=== PATIENT | male | born 1945 | race Caucasian/White ===

== ENCOUNTER → 2020-09-03 11:51 | Outpatient (CLI) | payer MEDICARE, SELFPAY ==
--- NOTE | 2020-09-03 11:56 | RAD_ITS ---
STUDY: X-RAY CHEST REASON FOR EXAM: Male, 75 years old. Hypertension TECHNIQUE: PA and lateral views of the chest. COMPARISON: None. FINDINGS: There is hyperinflation of the lungs consistent with chronic obstructive lung disease (COPD). There is no demonstrated pleural abnormality. Normal size heart. Normal mediastinum and quinten. Normal visualized pulmonary arteries. Normal visualized aortic arch and descending thoracic aorta. There are mild degenerative changes of the visualized thoracic spine. Normal visualized ribs, clavicles, and shoulders. There is no demonstrated abnormality of the visualized soft tissue structures of the upper abdomen. RAD/Chest PA and Lateral IMPRESSION: Hyperinflation. The lungs are clear. Electronically Signed: Arthur Piña, at 12:54 EST , Service support ,
[2020-09-03 12:53] LABS: Bacteria 0 SEEN /hpf (None Seen); Mucous, Urine 0 SEEN /hpf (<or=2+); Red Blood Cells-Urine 0 SEEN /hpf (0-5); Squamous Epithelial Cells - UA 0 SEEN /hpf (0-5); White Blood Cells 0 SEEN /hpf (0-5)
[2020-09-03 15:30] LABS: Absolute Lymphocyte Count 1.92 X10^3/uL (0.83-4.51); Absolute Neutrophil Count 4.7 X10^3/uL (2.0-7.7); Basophil# 0.06 X10^3/uL; Basophil% 0.8 % (0-1); Eosinophil# 0.26 X10^3/uL; Eosinophils% 3.4 % (0-5); Hematocrit 49.3 % (40-54); Hemoglobin 16.2 g/dL (13.0-16.5); Lymphocyte # 1.92 X10^3/ul (4.0); Mean Corp Hgb Conc 32.9 g/dL (32-36); Mean Corpuscular Hgb 29.7 pg (27.0-32.0); Mean Corpuscular Volume 90.3 fL (80-94); Mean Platelet Vol. 12.1 fl (6.2-12.0); Monocyte# 0.77 X10^3/uL; NRBC Flagged by Analyzer 0 % (0-5); Neutrophil # 4.65 X10^3/uL (2.7-7.7); Neutrophil % 60.4 % (47-70); Platelet Count 252 K/mm3 (150-450); RBC Distribution Width CV 14.3 % (11.6-14.6); RBC Distribution Width SD 47.5 fl (35.1-43.9); Red Blood Count 5.46 M/mm3 (4.6-6.2); White Blood Count 7.7 K/mm3 (4.4-11.0)
[2020-09-03 15:32] LABS: Glucose, Dipstick Normal (Normal); Ketone-Dipstick Negative (Negative); Leukocyte Esterase-Dipstick Negative /ul (Negative); Nitrite-Dipstick Negative (Negative); Occult Blood-Urine Negative /ul (Negative); Protein-Dipstick 100 mg/dl (Negative); Urine Bilirubin Dipstick Negative (Negative); Urine Urobilinogen Normal (Normal)
[2020-09-03 15:41] LABS: Color, Urine Yellow (Yellow); Urine Clarity Clear (Clear)
[2020-09-03 16:04] LABS: ALB/GLOB Ratio 0.9 RATIO (0.9-2.4); AST(SGOT) 29 U/L (15-37); Alanine Aminotransfer ALT/SGPT 49 U/L (16-61); Albumin, Serum 3.8 g/dL (3.2-5.0); Alkaline Phosphatase 81 U/L (45-117); Anion Gap 8 (5-15); BUN 18 mg/dL (7-18); BUN/Creat Ratio 19.4 RATIO (10-20); Chloride 103 mmol/L (98-107); Cholesterol 138 mg/dL (200); Creatinine, Serum 0.93 mg/dL (0.70-1.30); EST Glomerular Filtration Rate 85 mL/min (>60); Est Glom Filt Rate - Afr Amer 103 mL/min (>60); Globulin 4.2 g/dL (2.2-4.2); Glucose 89 mg/dL (74-106); High Density Lipoprotein 37 mg/dL; Magnesium 2.3 mg/dL (1.6-2.6); Potassium 4.2 mmol/L (3.5-5.1); Sodium Level 137 mmol/L (136-145); Triglycerides 211 mg/dL; Very Low Density Lipoprotein 42 mg/dL (5-40)
== END ==
PROVIDERS: PCP Family Medicine; Referring Provider Family Medicine; Visit Provider Family Medicine
DX: I10 Essential (primary) hypertension (principal); E78.00 Pure hypercholesterolemia, unspecified
CPT/HCPCS: 36415; 71046; 80053; 80061; 81001; 83735; 84443; 85025

== ENCOUNTER → 2020-09-09 12:47 | Outpatient (CLI) | payer MEDICARE, SELFPAY ==
--- NOTE | 2020-09-09 12:53 | US_ITS ---
STUDY: THYROID ULTRASOUND REASON FOR EXAM: Male, 75 years old. NODULE TECHNIQUE: Ultrasound evaluation of the thyroid was performed with real-time and static mina-scale imaging. COMPARISON: None. FINDINGS: RIGHT LOBE: The right lobe of the thyroid gland measures 4.3 x 1.4 x 1.8 cm. There is a homogeneous echotexture. Within the mid pole is a 2 mm cystic lesion with central hyperechoic area likely consistent with colloid cyst given appearance. LEFT LOBE: The left lobe of the thyroid gland measures 3.7 x 1.3 x 1.6 cm. There is a homogeneous echotexture. There are no demonstrated solid, cystic or complex lesions. ISTHMUS: The isthmus measures 2 mm. . The regional lymph nodes are normal. 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 Electronically Signed: Obed Berger DO at 10:16 EST , Service support ,
== END ==
PROVIDERS: PCP Family Medicine; Referring Provider Family Medicine; Visit Provider Family Medicine
DX: E04.1 Nontoxic single thyroid nodule (principal)
CPT/HCPCS: 76536

== ENCOUNTER → 2020-10-27 15:09 | Outpatient (CLI) | payer MEDICARE, SELFPAY ==
[2020-10-27 16:40] LABS: Absolute Lymphocyte Count 2.22 X10^3/uL (0.83-4.51); Absolute Neutrophil Count 4.2 X10^3/uL (2.0-7.7); Basophil# 0.05 X10^3/uL; Basophil% 0.7 % (0-1); Eosinophil# 0.26 X10^3/uL; Eosinophils% 3.5 % (0-5); Hematocrit 49.2 % (40-54); Hemoglobin 16.2 g/dL (13.0-16.5); Lymphocyte # 2.22 X10^3/ul (4.0); Lymphocyte % 29.5 % (19-41); Mean Corp Hgb Conc 32.9 g/dL (32-36); Mean Corpuscular Hgb 30.4 pg (27.0-32.0); Mean Corpuscular Volume 92.3 fL (80-94); Mean Platelet Vol. 12.4 fl (6.2-12.0); Monocyte% 10.6 % (0-10); NRBC Flagged by Analyzer 0 % (0-5); Neutrophil # 4.18 X10^3/uL (2.7-7.7); Neutrophil % 55.4 % (47-70); Platelet Count 260 K/mm3 (150-450); RBC Distribution Width CV 13.6 % (11.6-14.6); RBC Distribution Width SD 45.6 fl (35.1-43.9); Red Blood Count 5.33 M/mm3 (4.6-6.2); White Blood Count 7.5 K/mm3 (4.4-11.0)
[2020-10-27 17:03] LABS: ALB/GLOB Ratio 0.9 RATIO (0.9-2.4); AST(SGOT) 34 U/L (15-37); Alanine Aminotransfer ALT/SGPT 50 U/L (16-61); Albumin, Serum 3.7 g/dL (3.2-5.0); Alkaline Phosphatase 84 U/L (45-117); Anion Gap 6 (5-15); BUN 21 mg/dL (7-18); BUN/Creat Ratio 21.5 RATIO (10-20); Calcium,Total 9.2 mg/dL (8.5-10.1); Chloride 103 mmol/L (98-107); Cholesterol 157 mg/dL (200); Creatinine, Serum 0.98 mg/dL (0.70-1.30); EST Glomerular Filtration Rate 80 mL/min (>60); Est Glom Filt Rate - Afr Amer 97 mL/min (>60); Globulin 4.3 g/dL (2.2-4.2); Glucose 99 mg/dL (74-106); High Density Lipoprotein 36 mg/dL; Potassium 4.4 mmol/L (3.5-5.1); Sodium Level 134 mmol/L (136-145); Thyroid Stim Hormone (TSH) 1.84 uIU/mL (0.358-3.74); Triglycerides 289 mg/dL; Very Low Density Lipoprotein 58 mg/dL (5-40)
[2020-10-28 09:22] LABS: Hepatitis C Antibody Non-Reactive (Nonreactive); Vitamin D,25 Hydroxy 35.6 ng/mL
== END ==
PROVIDERS: PCP Family Medicine; Visit Provider Family Medicine Geriatric Medicine
DX: E55.9 Vitamin D deficiency, unspecified (principal); E78.5 Hyperlipidemia, unspecified; R53.83 Other fatigue; Z13.89 Encounter for screening for other disorder
CPT/HCPCS: 36415; 80053; 80061; 82306; 84443; 85025; 86803

== ENCOUNTER → 2020-11-04 14:44 | Outpatient (CLI) | payer MEDICARE, SELFPAY ==
--- NOTE | 2020-11-04 14:51 | CT_ITS ---
STUDY: LOW DOSE CT LUNG CANCER SCREENING REASON FOR EXAM: Male, 75 years old. LUNG CANCER SCREENING. SMOKE PIPE FOR 20 YEARS RADIATION DOSAGE (If Supplied By Facility): CTDIvol = ( 3.02 ) mGy, DLP = ( 107.59 ) mGycm TECHNIQUE: No contrast was administered. Low dose technique was utilized (average mAS-38 and kVp 120). 1.25 mm axial source images with a slice interval of 1.25-mm were reconstructed in lung windows. 2.5 mm axial source images with a slice interval of 2.5-mm were reconstructed in lung windows. 5.0 mm axial source images with a slice interval of 5.0-mm were reconstructed in soft tissue windows. Nodule measured using lung windows on PACS and/or independent workstation with automated measurement of minimum and maximum diameter. Nodule measurement reported as average diameter rounded to the nearest whole number. Growth is defined as an increase ins size of greater than 1.5 mm. COMPARISON: Comparison is made with prior chest radiograph dated 09/03/2020. NODULES: No suspicious nodules are seen. Emphysema: Hyperinflation. Findings suggestive of a biapical pulmonary scarring. Minimal linear scarring in the anterior medial aspect of the left upper lobe. Findings suggestive of minimal scarring in the medial portions of both lower lobes with mild bronchiectasis. Calcified granuloma in the superior segment of the left lower lung. Endobronchial lesion: Aorta: Mild atherosclerotic changes of the aortic arch. Coronary arteries: Calcification of the mitral valve annulus. Coronary artery calcification. Mediastinal nodes: Small benign appearing mediastinal lymph nodes. Calcified left hilar lymph nodes. Other chest and abdominal findings: Hiatal hernia. CT/Low Dose CT Lung Screening IMPRESSION: Lung-RADS category 2 - Continue annual screening with LDCT in 12 months. IMPORTANT NOTES FOR USE: ACR Lung-RADS Version 1.0 Assessment Categories Release Date: January 13, 2014 Category: Coded 0-4 bases on nodule(s) with highest degree of suspicion. Negative screen is defined as categories 1 and 2; a positive screen is defined as categories 3 and 4. Category 3 and 4A nodules that are unchanged on interval CT should be coded as category 2, and individuals returned to screening in 12 months. Category 4X: Category 3 or 4 nodules with additional imaging findings that increase the suspicion of lung cancer, such as spiculation, GGN that doubles in size in 1 year, enlarged lymph notes, etc. Category Modifiers: S (significant finding unrelated to lung cancer) and C (prior history of treated lung cancer) may be added to the 0-4 Lung-RADS Electronically Signed: Arthur Piña MD at 15:23 EST , Service support ,
== END ==
PROVIDERS: PCP Family Medicine Geriatric Medicine; Referring Provider Family Medicine Geriatric Medicine; Visit Provider Family Medicine Geriatric Medicine
DX: F17.210 Nicotine dependence, cigarettes, uncomplicated (principal); Z12.2 Encounter for screening for malignant neoplasm of respiratory organs
CPT/HCPCS: 71271

== ENCOUNTER → 2020-11-06 08:07 | Outpatient (CLI) | payer MEDICARE, SELFPAY ==
--- NOTE | 2020-11-06 08:08 | AAVD_ITS ---
Reason For Study: AAA Aorta Measurements Aorta Doppler Measurements Proximal aorta measures1.84cm x 1.99cm. in cross- Peak systolic flow velocities within the proximal sectional axis. aorta measure 79 cm/sec. Proximal aorta measures1.90cm. in longitudinal Peak systolic flow velocities within the mid aorta axis. measure 67 cm/sec. Mid aorta measures2.34cm x 2.38cm. in cross- Peak systolic flow velocities within the distal sectional axis. aorta measure 86 cm/sec. Mid aorta measures1.90cm. in longitudinal axis. Distal aorta measures1.66cm x 1.78cm. in cross- sectional axis. Distal aorta measures1.61cm. in longitudinal axis. Left Iliac Artery Left iliac artery measures 0.95cm x 0.93 cm. in the cross-sectional axis. Left iliac artery measures 1.09 cm. in the longitudinal axis. Peak systolic velocity in the left iliac artery measures 103 cm/sec. Right Iliac Artery Right iliac artery measures 0.98cm x 0.99 cm. in the cross-sectional axis. Right iliac artery measures 1.11 cm. in the longitudinal axis. Peak systolic velocity in the right iliac artery measures 75 cm/sec. Procedure Aorta IVC Iliac vasculature or bypass grafts [id number]. Bowel gas noted mid Aorta. Exam performed in department. Interpretation Summary The dimensions of the intra-abdominal aorta are normal, without evidence of aneurysmal dilatation. The iliac arteries are also normal in size bilaterally. The intra-abdominal aorta and iliac arteries are patent, demonstrating normal, pulsatile arterial flow and normal peak systolic velocities. Ordering Physician: Rigo Cramer Referring Physician: Rigo Cramer Chi Performed By: Veronica Josue, RDCS, RVT
== END ==
PROVIDERS: PCP Family Medicine Geriatric Medicine; Referring Provider Family Medicine Geriatric Medicine; Visit Provider Family Medicine Geriatric Medicine
DX: I71.4 Abdominal aortic aneurysm, without rupture (principal)
CPT/HCPCS: 93978

== ENCOUNTER → 2020-11-26 15:32 | Outpatient (CLI) | payer MEDICARE, SELFPAY ==
[2020-11-26 17:35] LABS: Cholesterol 222 mg/dL (200); High Density Lipoprotein 26 mg/dL; Triglycerides 563 mg/dL
== END ==
PROVIDERS: PCP Family Medicine Geriatric Medicine; Visit Provider Family Medicine Geriatric Medicine
DX: E78.5 Hyperlipidemia, unspecified (principal)
CPT/HCPCS: 36415; 80061

== ENCOUNTER → 2021-04-26 13:45 | Outpatient (CLI) | payer MEDICARE, SELFPAY ==
[2021-04-26 15:43] LABS: Absolute Lymphocyte Count 1.86 X10^3/uL (0.83-4.51); Absolute Neutrophil Count 5.7 X10^3/uL (2.0-7.7); Basophil# 0.07 X10^3/uL; Basophil% 0.8 % (0-1); Eosinophil# 0.19 X10^3/uL; Eosinophils% 2.2 % (0-5); Hemoglobin 15.3 g/dL (13.0-16.5); Lymphocyte # 1.86 X10^3/ul (0.83-4.51); Lymphocyte % 21.4 % (19-41); Mean Corp Hgb Conc 32.6 g/dL (32-36); Mean Corpuscular Hgb 29.2 pg (27.0-32.0); Mean Corpuscular Volume 89.7 fL (80-94); Mean Platelet Vol. 11.8 fl (6.2-12.0); Monocyte# 0.83 X10^3/uL; Monocyte% 9.5 % (0-10); NRBC Flagged by Analyzer 0 % (0-5); Neutrophil # 5.72 X10^3/uL (2.7-7.7); Neutrophil % 65.6 % (47-70); Platelet Count 244 K/mm3 (150-450); RBC Distribution Width CV 13.7 % (11.6-14.6); RBC Distribution Width SD 45.1 fl (35.1-43.9); Red Blood Count 5.24 M/mm3 (4.6-6.2); White Blood Count 8.7 K/mm3 (4.4-11.0)
[2021-04-26 15:56] LABS: Vitamin D,25 Hydroxy 57.9 ng/mL
[2021-04-26 16:20] LABS: ALB/GLOB Ratio 0.9 RATIO (0.9-2.4); AST(SGOT) 26 U/L (15-37); Alanine Aminotransfer ALT/SGPT 37 U/L (16-61); Albumin, Serum 3.4 g/dL (3.2-5.0); Alkaline Phosphatase 66 U/L (45-117); Anion Gap 8 (5-15); BUN 21 mg/dL (7-18); BUN/Creat Ratio 22.5 RATIO (10-20); Calcium,Total 8.5 mg/dL (8.5-10.1); Chloride 105 mmol/L (98-107); Cholesterol 227 mg/dL (200); Creatinine, Serum 0.94 mg/dL (0.70-1.30); EST Glomerular Filtration Rate 84 mL/min (>60); Est Glom Filt Rate - Afr Amer 102 mL/min (>60); Globulin 3.9 g/dL (2.2-4.2); Glucose 124 mg/dL (74-106); High Density Lipoprotein 31 mg/dL; Protein, Total 7.3 g/dL (6.4-8.2); Sodium Level 137 mmol/L (136-145); Thyroid Stim Hormone (TSH) 1.46 uIU/mL (0.358-3.74); Triglycerides 369 mg/dL; Very Low Density Lipoprotein 74 mg/dL (5-40)
== END ==
PROVIDERS: PCP Family Medicine Geriatric Medicine; Visit Provider Family Medicine Geriatric Medicine
DX: E55.9 Vitamin D deficiency, unspecified (principal); I10 Essential (primary) hypertension; E78.5 Hyperlipidemia, unspecified
CPT/HCPCS: 36415; 80053; 80061; 82306; 84443; 85025

== ENCOUNTER 2021-05-22 10:26 | Inpatient (IN) | payer MEDICARE, SELFPAY ==
[2021-05-22 10:26] VITALS: BP 140/79; PULSE 67; RESP 16; TEMP 36.2; O2SAT 95; BMI 22.9
--- NOTE | 2021-05-22 10:44 | CT_ITS ---
EXAM: CT HEAD WITHOUT INTRAVENOUS CONTRAST : 1945 CLINICAL INDICATION: injury TECHNIQUE: Multiple axial images were obtained of the head without intravenous contrast. This CT exam was performed using one or more of the following dose reduction techniques: automated exposure control, adjustment of the mA and/or kV according to patient size, and/or use of iterative reconstruction technique. This report was created using [employer] report generation technology. COMPARISON: None. FINDINGS: BRAIN AND EXTRA-AXIAL SPACES: Unremarkable. No intra- or extra-axial hemorrhage. No evidence of acute infarct. No intracranial mass or mass effect. There is preservation of the mina/white matter interface. Posterior fossa structures are unremarkable. Ventricles are appropriate for age. No hydrocephalus. Basal cisterns are patent. BONES/JOINTS: Unremarkable. No discrete lytic or blastic abnormalities. SINUSES: Unremarkable as visualized. Clear. MASTOID AIR CELLS: Unremarkable. Clear. ORBITS: Visualized globes, extraocular muscles, optic nerves and retrobulbar fat appear unremarkable. CT/Brain/Head without Contrast IMPRESSION: Negative head/brain CT without intravenous contrast. Individualized dose optimization techniques were used for this CT. at 1136 Reported and signed by: Shubham Mendoza MD Electronically Signed: Shubham Mendoza MD at 11:35 EDT Tel , Service support ,
--- NOTE | 2021-05-22 10:55 | RAD_ITS ---
EXAM: XR RIGHT HIP WITH PELVIS WHEN PERFORMED, 2 OR 3 VIEWS : 1945 CLINICAL INDICATION: fell today TECHNIQUE: Two or three views of the right hip with pelvis when performed. This report was created using [employer] report generation technology. COMPARISON: None. FINDINGS: BONES/JOINTS: There is a fracture of the right femoral neck. There is a total left hip prosthesis in anatomic alignment. No destructive or sclerotic lesions. Note that overlapping bowel shadows may however obscure fine detail. Sacroiliac joint is unremarkable. No widening of the pubic symphisis. SOFT TISSUES: Unremarkable. No soft tissue swelling or gas. RAD/HIP, UNI W/ Pelvis 2-3 Views IMPRESSION: Fracture of the right femoral neck. at 1139 Reported and signed by: Shubham Mendoza MD Electronically Signed: Shubham Mendoza MD at 11:38 EDT Tel , Service support ,
[2021-05-22] MEDS: Ondansetron 4 MG/2 ML Vial IV (12:09)
[2021-05-22] MEDS: Morphine 4 MG/ML Syringe IV (12:09)
[2021-05-22 12:14] LABS: Absolute Lymphocyte Count 0.94 X10^3/uL (0.83-4.51); Basophil# 0.03 X10^3/uL; Basophil% 0.3 % (0-1); Eosinophil# 0.26 X10^3/uL; Eosinophils% 2.8 % (0-5); Hematocrit 46.8 % (40-54); Hemoglobin 15.5 g/dL (13.0-16.5); Lymphocyte # 0.94 X10^3/ul (0.83-4.51); Mean Corp Hgb Conc 33.1 g/dL (32-36); Mean Corpuscular Hgb 29.8 pg (27.0-32.0); Mean Corpuscular Volume 89.8 fL (80-94); Mean Platelet Vol. 11.8 fl (6.2-12.0); Monocyte# 1.12 X10^3/uL; NRBC Flagged by Analyzer 0 % (0-5); Neutrophil # 6.97 X10^3/uL (2.7-7.7); Neutrophil % 74.5 % (47-70); Platelet Count 221 K/mm3 (150-450); RBC Distribution Width CV 13.8 % (11.6-14.6); RBC Distribution Width SD 45.7 fl (35.1-43.9); Red Blood Count 5.21 M/mm3 (4.6-6.2); White Blood Count 9.4 K/mm3 (4.4-11.0)
[2021-05-22 12:26] LABS: Partial Thromboplast Time 32.2 Seconds (24.1-36.2)
--- NOTE | 2021-05-22 12:28 | EDS_ITS ---
HPI History of Present Illness Chief Complaint: Fall Informant: patient and spouse/S.O. Narrative Narrative: 76-year-old male presents the emergency department with right hip pain from a fall. Patient states that he was working in his bed of his truck and went to step onto the 3 step ladder and the ladder gave way and he fell down onto his right side. He notes a area of soreness to the right shoulder and an area of contusion to the right side of his head. He denies any neck or back pain. He notes most of his discomfort is in his right hip. He denies any knee or ankle injury. He had a prior fall off of a semi. This resulted in a left hip fracture which was treated in [place]. He recently relocated to [place]. He does not have a local orthopedist [facility] Medical History (Updated 05/22/21 @ 12:[address] Paul Castro DO) High cholesterol Home Medications atorvastatin 40 mg PO DAILY 05/22/21 [History Last Taken Unknown] latanoprost drp 05/22/21 [History Last Taken Unknown] Allergy/AdvReac Type Severity Reaction Status Date / Time No Known Allergies Allergy Verified 05/22/21 10:26 Surgical History (Updated 05/22/21 @ 12:[address] Paul Castro DO) History of total left hip replacement Social History (Updated 05/22/21 @ 12:[address] Paul Castro DO) Smoking Status: Former smoker substance use type: does not use ROS ROS ED Constitutional Constitutional ED: Denies chills or weight loss Eyes Eyes: Denies change in vision or diplopia ENT ENT ED: Denies ear pain, rhinorrhea or sore throat Cardiovascular Cardiovascular: Denies chest pain, orthopnea, palpitations or racing heartbeat Respiratory/Chest Respiratory/Chest: Denies cough, dyspnea or orthopnea Gastrointestinal Gastrointestinal: Denies abdominal pain, diarrhea, nausea or vomiting Genitourinary Genitourinary ED: Denies dysuria, hematuria or urinary frequency Musculoskeletal Musculoskeletal: Reports other Details: Right hip pain ; Denies arthralgias or myalgias Integumentary Reports Abrasions; Denies abscess or rash Neurologic Neurologic: Denies headache(s) or weakness Psychiatric Psychiatric: Denies anxiety, depression, suicidal ideation or suicidal thoughts Endocrine Endocrinology: Denies polydipsia, polyphagia or polyuria Allergic/Immunologic Allergic/Immunologic ED: Denies mouth swelling, tongue swelling or urticaria EXAM Physical Exam Const Vital Signs: 05/22/21 10:26 05/22/21 10:37 Temperature 97.2 F L Temperature Source Temporal Pulse Rate 67 Respiratory Rate 16 Respiratory Effort Normal Non-Labored Blood Pressure 140/79 H Blood Pressure Mean 99 Pulse Ox 95 Oxygen Delivery Method Room Air Room Air Positive well nourished and well developed General Appearance ED: well developed HEENT Reports normocephalic, head/scalp atraumatic, TM's clear and moist mucous membranes HEENT Narrative: Abrasion right scalp trauma Tympanic Membrane ED: Yes TM's clear Eyes PERRL and EOMs intact bilaterally Neck no lymphadenopathy, supple and no JVD Resp normal respiratory effort and clear to auscultation bilaterally Cardio regular rate, regular rhythm and no murmurs GI normal to inspection, nondistended, normoactive bowel sounds and non-tender Palpation: soft Back/Spine no CVA tenderness and normal ROM Extremity Extremity Narrative: Right leg appears slightly shorter than left. Positive logroll. There is a superficial abrasion to the right shoulder. Superficial abrasions to the wrist. Full range of motion and painless. General Extremety ED: Negative for edema General Extremity: Negative for edema Neuro oriented x3 and CN's II-XII intact bilaterally Sensorium / Orientation: alert Motor Exam: strength 5/5 throughout Psych mental status grossly normal Mood & Affect: Negative for depressed or tearful Skin no rashes or lesions noted and no wounds MDM MDM MDM Narrative Medical decision making narrative: CT of the brain shows no acute intracranial hemorrhage or fracture. My interpretation of the right hip is a femoral neck fracture. I spoke with Dr. Ng from orthopedics. He will plan on having surgery tomorrow. I will speak with the hospitalist regarding admission. Lab Data Attestation: I reviewed the patient's lab results. Labs: Laboratory Results - last 24 hr 05/22/21 05/22/21 05/22/21 12:04 12:04 12:04 WBC 9.4 RBC 5.21 Hgb 15.5 Hct 46.8 MCV 89.8 MCH 29.8 MCHC 33.1 RDW Std Deviation 45.7 H RDW Coeff of Elida 13.8 Plt Count 221 MPV 11.8 Immature Gran % (Auto) 0.400 Neut % (Auto) 74.5 H Lymph % (Auto) 10.0 L [place] % (Auto) 12.0 H Eos % (Auto) 2.8 Baso % (Auto) 0.3 Absolute Neuts (auto) 7.0 Absolute Lymphs (auto) 0.94 Nucleated RBC % 0 PT 13.0 INR 1.0 APTT 32.2 Sodium 136 Potassium 4.1 Chloride 105 Carbon Dioxide 26.0 Anion Gap 5 BUN 23 H Creatinine 0.88 Estim Creat Clear Calc 75.60 Est GFR (MDRD) Af Amer 109 Est GFR (MDRD) Non-Af 90 BUN/Creatinine Ratio 26.1 H Glucose 125 H Calcium 8.9 Total Bilirubin 0.80 AST 26 ALT 29 Alkaline Phosphatase 68 Total Protein 7.5 Albumin 3.2 Globulin 4.3 H Albumin/Globulin Ratio 0.7 L Radiography Diagnostic Testing: Radiology Impression Brain CT 05/22/21 10:44 IMPRESSION: Negative head/brain CT without intravenous contrast. Individualized dose optimization techniques were used for this CT. at 1136 Reported and signed by: Shubham Mendoza MD Electronically Signed: Shubham Mendoza MD at 11:35 EDT Tel , Service support , Hip/Pelvis X-Ray 05/22/21 10:55 IMPRESSION: Fracture of the right femoral neck. at 1139 Reported and signed by: Shubham Mendoza MD Electronically Signed: Shubham Mendoza MD at 11:38 EDT Tel , Service support , EKG Initial EKG: Attestation: I personally reviewed and interpreted this EKG as follows: Comments: Sinus bradycardia with a ventricular rate of 56 bpm Discharge Plan Dx/Rx/DC Orders Clinical Impression: Fall, Fracture of femoral neck, right, closed, Contusion of right shoulder, Abrasion of scalp, Contusion of right wrist Disposition Disposition: Acute Care Hospital [facility]
[2021-05-22 12:34] LABS: ALB/GLOB Ratio 0.7 RATIO (0.9-2.4); AST(SGOT) 26 U/L (15-37); Alanine Aminotransfer ALT/SGPT 29 U/L (16-61); Albumin, Serum 3.2 g/dL (3.2-5.0); Alkaline Phosphatase 68 U/L (45-117); Anion Gap 5 (5-15); BUN 23 mg/dL (7-18); BUN/Creat Ratio 26.1 RATIO (10-20); Calcium,Total 8.9 mg/dL (8.5-10.1); Chloride 105 mmol/L (98-107); Creatinine, Serum 0.88 mg/dL (0.70-1.30); EST Glomerular Filtration Rate 90 mL/min (>60); Est Glom Filt Rate - Afr Amer 109 mL/min (>60); Globulin 4.3 g/dL (2.2-4.2); Glucose 125 mg/dL (74-106); Potassium 4.1 mmol/L (3.5-5.1); Protein, Total 7.5 g/dL (6.4-8.2); Sodium Level 136 mmol/L (136-145)
--- NOTE | 2021-05-22 12:40 | EKG12_ITS ---
Test Reason : FALL Blood Pressure : / mmHG Vent. Rate : 056 BPM Atrial Rate : 056 BPM P-R Int : 160 ms QRS Dur : 080 ms QT Int : 398 ms P-R-T Axes : 051 060 057 degrees QTc Int : 384 ms Sinus bradycardia Otherwise normal ECG Confirmed by MARIANGEL MURCIA, MALLORIE ([id number]), features editor JENNY CAMACHO ([id number]) on 05/25/2021 8:01:01 AM Referred By: JAMES Confirmed By:SHAI AUGUST MD
[2021-05-22 13:45] VITALS: BP 140/79; PULSE 67; RESP 16; TEMP 36.2; O2SAT 95
[2021-05-22 14:10] VITALS: BP 143/91; PULSE 57; RESP 16; TEMP 36.6; O2SAT 96; BMI 23.4
--- NOTE | 2021-05-22 15:07 | PCM.HP.STD ---
HPI - General General Date of Admission: 05/22/21 HPI Narrative JODI CLARK, is a 76 M who presents the hospital with right hip pain. He apparently fell off the bed of his pickup truck, he was trying to get down with step ladder and the ladder gave way and he fell onto his right hip. In the ED he was found to have a right hip fracture. 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 Denies any fevers or chills currently says that it was purely mechanical fall, no lightheadedness or dizziness. No chest pain either. Denies any palpitations recently. [facility] Medical History (Updated 05/22/21 @ 14:27 by Delisa Church) Former smoker GI bleed High cholesterol Home Medications atorvastatin 40 mg PO DAILY 05/22/21 [History Last Taken 05/22/21] dorzolamide-timolol 1 drp EACH EYE BID 05/22/21 [History Last Taken Unknown] latanoprost 1 drp EACH EYE QHS 05/22/21 [History Last Taken Unknown] Allergy/AdvReac Type Severity Reaction Status Date / Time No Known Allergies Allergy Verified 05/22/21 10:26 Family History (Updated 05/22/21 @ 15:[address] Georges Nelson MD) Other Colon cancer Surgical History (Updated 05/22/21 @ 12:[address] Paul Castro DO) History of total left hip replacement Social History (Updated 05/22/21 @ 12:[address] Paul Castro DO) Smoking Status: Former smoker substance use type: does not use ROS Constitutional Constitutional: Denies chills, fatigue, fever(s) or malaise Eyes Eyes: Denies blurry vision ENT HEENT: Denies headache(s) or nasal discharge Cardiovascular Cardiovascular: Denies chest pain, dyspnea on exertion or syncope Respiratory/Chest Respiratory/Chest: Denies cough, shortness of breath at rest or shortness of breath with exertion Gastrointestinal Gastrointestinal: Denies constipation, diarrhea, nausea or vomiting Genitourinary Genitourinary: Denies dysuria Musculoskeletal Musculoskeletal: Reports joint pain Neurologic Neurologic: Denies focal weakness, numbness or tremor(s) Psychiatric Psychiatric: Denies anxiety or depression Vital Signs Vital Signs Vital Signs: 05/22/21 10:26 05/22/21 10:37 05/22/21 13:45 Temperature 97.2 F L 97.2 F L Temperature Source Temporal Temporal Pulse Rate 67 67 Respiratory Rate 16 16 Respiratory Effort Normal Non-Labored Blood Pressure 140/79 H 140/79 H Blood Pressure Mean 99 99 Pulse Ox 95 95 Oxygen Delivery Method Room Air Room Air Room Air Weight Weight: 163 lb 5.8 oz Body Mass Index (BMI) 23.4 Physical Exam Const alert, oriented x3 and no apparent distress General Appearance: cooperative HEENT normocephalic and moist oral mucous membranes Eyes PERRL, EOMs intact bilaterally and conjunctivae normal Neck supple and no JVD Resp normal respiratory effort, no retractions, no use of accessory muscles and clear to auscultation bilaterally Auscultation: Negative for crackles, rales, rhonchi or wheezes Cardio regular rate, regular rhythm, S1 normal heart sound, S2 normal heart sound and no murmurs GI soft to palpation, non-tender and non-distended; Negative for hepatosplenomegaly Extremity no clubbing, cyanosis or edema Right Lower Extremity: hip joint other (Pain to palpation) Skin no rashes or lesions noted Neuro no focal motor deficits and no sensory deficits noted Psych affect normal Appearance: appropriate Results Lab / Micro Data Result Diagrams: 05/22/21 12:04 05/22/21 12:04 Labs: Laboratory Results - last 24 hr 05/22/21 12:04: WBC 9.4, RBC 5.21, Hgb 15.5, Hct 46.8, MCV 89.8, MCH 29.8, MCHC 33.1, RDW Std Deviation 45.7 H, RDW Coeff of Elida 13.8, Plt Count 221, MPV 11.8, Immature Gran % (Auto) 0.400, Neut % (Auto) 74.5 H, Lymph % (Auto) 10.0 L, [place] % (Auto) 12.0 H, Eos % (Auto) 2.8, Baso % (Auto) 0.3, Absolute Neuts (auto) 7.0, Absolute Lymphs (auto) 0.94, Nucleated RBC % 0 05/22/21 12:04: PT 13.0, INR 1.0, APTT 32.2 05/22/21 12:04: Sodium 136, Potassium 4.1, Chloride 105, Carbon Dioxide 26.0, Anion Gap 5, BUN 23 H, Creatinine 0.88, Estim Creat Clear Calc 75.60, Est GFR (MDRD) Af Amer 109, Est GFR (MDRD) Non-Af 90, BUN/Creatinine Ratio 26.1 H, Glucose 125 H, Calcium 8.9, Total Bilirubin 0.80, AST 26, ALT 29, Alkaline Phosphatase 68, Total Protein 7.5, Albumin 3.2, Globulin 4.3 H, Albumin/Globulin Ratio 0.7 L 05/22/21 12:04: Blood Type O POSITIVE, Antibody Screen NEGATIVE Micro: Microbiology 05/22/21 12:26 Nasal Secretion SARS-CoV-2 Antigen (Rapid) - Final Radiology Impression Brain CT 05/22/21 10:44 IMPRESSION: Negative head/brain CT without intravenous contrast. Individualized dose optimization techniques were used for this CT. at 1136 Reported and signed by: Shubham Mendoza MD Electronically Signed: Shubham Mendoza MD at 11:35 EDT Tel , Service support , Hip/Pelvis X-Ray 05/22/21 10:55 IMPRESSION: Fracture of the right femoral neck. at 1139 Reported and signed by: Shubham Mendoza MD Electronically Signed: Shubham Mendoza MD at 11:38 EDT Tel , Service support , Assessment & Plan Assessment/Plan (1) Fracture of femoral neck, right, closed: PLAN: 1. Right femoral neck fracture -Status post mechanical fall -Plan for operative repair tomorrow by Ortho -He is low risk, his only medical history is hyperlipidemia which she is on medication for -PT/OT -Morphine for pain -N.p.o. at midnight 2. Hyperlipidemia -Stable -Continue with statin DVT: SCDs Charges/Coding Visit Charges Inpatient E&M: 13352 Init Hosp L2
[2021-05-22 20:00] VITALS: BP 143/84; PULSE 69; RESP 16; TEMP 37.2; O2SAT 95
[2021-05-22] MEDS: 0.9% Saline Lock 10 ML Syringe IV (21:24)
[2021-05-22] MEDS: Morphine 2 MG/ML Syringe IV (21:24)
[2021-05-23] VITALS (14 sets, daily range): BP systolic 102–137; BP diastolic 71–98; PULSE 70–152; RESP 16–18; TEMP 35.5–37.2; O2SAT 91–95; BMI 23.4; BMI 23.5
--- NOTE | 2021-05-23 | HIP_PTH ---
PATIENT: JODI CLARK Jr. LOC: [facility] U#:[id number] AGE/SX: 76/M ROOM: [facility] RE05/22/[address]: Dr. Shaggy Dowling MD : 1945 BED: 1 DIS: 05/25/2021 SPEC #: [id number] RECD: 05/25/21 11:27 STATUS: TAYE RESj #: [id number] RUSTY: 05/23/21 00:[address]: Shaggy Dowling DEPT: SURGICAL PATHOLOGY RECD BY: Darek Hazel ENTERED: 05/25/21 11:28 SP TYPE: TOTAL HIP OTHR DR: MD Dr. Rigo Cool Chi, MD Tissues: Hip, NOS Procedures: Decalcification bone/plaque Surgery Specimen Level IV HEADER OPERATION: Hemiarthroplasty, right hip PRE-OP DIAGNOSIS: Fracture of the right femoral neck TISSUE SUBMITTED: Right femoral head MICROSCOPIC DIAGNOSIS Right femoral head, total joint resection: Consistent with organizing fracture callus. AM:roe 05/28/21 MICROSCOPIC DESCRIPTION Slides are reviewed. GROSS DESCRIPTION Received is one container labeled with the patient's name and designated femoral head and tissue. The specimen consists of a perez femoral head measuring 5 x 5 5cm. The articular surface is smooth. Resection margin is irregular and hemorrhagic. Also present in the specimen container is the femoral neck measuring 4 x 3 x 2cm. Sba Underwriter sections are submitted in two cassettes after decalcification./AM:roe 05/25/21 TC:5 CPT: 59419, 85911
--- NOTE | 2021-05-23 05:00 | EKG12_ITS ---
Test Reason : PRE-OP Blood Pressure : / mmHG Vent. Rate : 071 BPM Atrial Rate : 071 BPM P-R Int : 140 ms QRS Dur : 080 ms QT Int : 388 ms P-R-T Axes : 049 014 043 degrees QTc Int : 421 ms Normal sinus rhythm Incomplete right bundle branch block Confirmed by ELLY MURCIA, SILVERIO ([id number]), script editor JENNY CAMACHO ([id number]) on 05/26/2021 9:38:17 AM Referred By: CASSIE Confirmed By:SILVERIO SANABRIA MD
[2021-05-23 06:04] LABS: Absolute Lymphocyte Count 1.48 X10^3/uL (0.83-4.51); Absolute Neutrophil Count 5.5 X10^3/uL (2.0-7.7); Basophil# 0.03 X10^3/uL; Basophil% 0.3 % (0-1); Eosinophil# 0.39 X10^3/uL; Eosinophils% 4.5 % (0-5); Hematocrit 43.7 % (40-54); Hemoglobin 14.4 g/dL (13.0-16.5); Lymphocyte # 1.48 X10^3/ul (0.83-4.51); Lymphocyte % 17.2 % (19-41); Mean Corpuscular Hgb 29.8 pg (27.0-32.0); Mean Corpuscular Volume 90.3 fL (80-94); Mean Platelet Vol. 12.1 fl (6.2-12.0); Monocyte# 1.12 X10^3/uL; NRBC Flagged by Analyzer 0 % (0-5); Neutrophil # 5.53 X10^3/uL (2.7-7.7); Neutrophil % 64.5 % (47-70); Platelet Count 193 K/mm3 (150-450); RBC Distribution Width CV 14.2 % (11.6-14.6); Red Blood Count 4.84 M/mm3 (4.6-6.2); White Blood Count 8.6 K/mm3 (4.4-11.0)
[2021-05-23 06:41] LABS: Anion Gap 7 (5-15); BUN 21 mg/dL (7-18); BUN/Creat Ratio 25.5 RATIO (10-20); Calcium,Total 8.3 mg/dL (8.5-10.1); Chloride 104 mmol/L (98-107); Creatinine, Serum 0.82 mg/dL (0.70-1.30); EST Glomerular Filtration Rate 97 mL/min (>60); Est Glom Filt Rate - Afr Amer 118 mL/min (>60); Estimated Creatinine Clearance 81.61 ml/min; Glucose 89 mg/dL (74-106); Potassium 3.8 mmol/L (3.5-5.1); Sodium Level 135 mmol/L (136-145)
[2021-05-23] MEDS: Cefazolin 1 GM/50 ML BAG IV ×2 (08:00→15:59)
--- NOTE | 2021-05-23 08:00 | NURSING ---
pt to surgery
[2021-05-23] MEDS: Cefazolin 2 GM in 0.9% Normal Saline 100 ML IV (08:04)
[2021-05-23] MEDS: Lactated Ringers 1,000 ML 125 ML IV ×2 (08:05→12:08)
--- NOTE | 2021-05-23 09:47 | PCM.OPRPT ---
Report of Operation Date of Procedure: 05/23/21 Description of Surgical Findings:: Preoperative diagnosis: Right hip femoral neck fracture displaced Postoperative diagnosis: Same Procedure: Right hip hemiarthroplasty Implants: Erik Accolade II stem size 6 127 degree neck angle +4 neck length 52 mm outer diameter bipolar head Anesthesia: General l EBL: 50 cc Complications: None Condition: Stable to PACU Indication for procedure: This is a 76-year-old male patient who fell well getting off the back of his pickup truck onto a ladder that gave out on him on the last step fell directly onto his right hip immediately had pain taken to the emergency room where x-rays demonstrated the aforementioned femoral neck fracture on the right. plans for definitive hemiarthroplasty were discussed including risks benefits and alternatives of the procedure were reviewed with the patient including risk of bleeding infection nerve artery tissue damage need for further surgery continue pain postoperative hip precaution restrictions leg length discrepancy and dislocation. Procedure: Patient was met in the preoperative holding area once again the operative extremity was identified by both patient and physician and was marked. Patient was met by anesthesia and brought to the operating room where anesthesia was started . The patient was then positioned in the lateral decubitus position on a well-padded pegboard with an axillary roll. All bony prominences were checked and padded. The patient was prepped and draped in the usual sterile fashion. A timeout was called to ensure the proper patient procedure and extremity were being contemplated. Anatomic landmarks were palpated and marked for a standard posterior lateral approach. A timeout was called to ensure the proper patient procedure and extremity were being contemplated. A 10 blade scalpel was used to make a posterior incision through the skin and subcutaneous tissue. In retractors were used and electrocautery was used to maintain meticulous hemostasis and dissect full-thickness flaps until the gluteal fascia was reached. The gluteal fascia was incised in line with the gluteal fibers. The bursal tissue was then freed from the underside and a Charnley retractor was placed. The fatpad was elevated off of the external rotators with electrocautery and the external rotators were dissected off of the greater trochanter including the piriformis and were tagged with #1 Ethibond for later repair. The joint capsule opened with posterior trapdoor technique. A femoral neck cutting guide was used to mayo the neck with a Bovie and an oscillating saw was used to complete the femoral neck cut. the fracture was visualized and with the use of a corkscrew and a skid the femoral head was removed and sized. We then trialed with the matching sizes . Hohmann was placed around the lesser trochanter. A femoral elevator was used. As well as a pointed wide Hohmann around the lesser trochanter and a Hohmann to help retract the gluteus medius. A box chisel was used to remove excess lateral neck followed by a canal finder and a lateralizing reamer. This was followed by sequential broaches. Attention was made of the version within the canal. Once the final broach was seated we then trialed and reduced the hip it was determined that a 127 degree neck angle with a +4 neck length was the appropriate size. We then checked stability with shuck testing as well as flexion and interminal rotation then proceeded with hip extension and checked leg lengths at the knees and heels. At this point trials were removed. The femoral stem was inserted. We re-trialed and then proceeded to impact the femoral head onto the Geovanni taper. We then surgically reduce the hip check stability again and leg lengths and were satisfied. irricept rinse was allowed to sit for 1 minutes while everyone changed their gloves. Thorough irrigation was performed. Followed by closure of the external rotators with #2 FiberWire followed by closure of gluteal fascia with #1 Ethibond. 0 Vicryl fat stitches and 2-0 Vicryl subcutaneous stitches and cary in the skin. Dressing was applied in the form of silverlon dressing and an abduction pillow was placed. Patient tolerated the procedure well there was no intraoperative complications all counts were correct and the patient was brought back to the PACU in stable condition
--- NOTE | 2021-05-23 09:48 | CON.PCM_ITS ---
Assessment & Plan Assessment/Plan (1) Fracture of femoral neck, right, closed: QUALIFIERS: Encounter type: initial encounter Qualified Code(s): S72.001A - Fracture of unspecified part of neck of right femur, initial encounter for closed fracture PLAN: Definitive plans for right hip hemiarthroplasty discussed with the patient risk benefits reviewed consent signed preoperative antibiotics ordered proceed to the OR HPI Consult Data Date of Consult: 05/23/21 HPI Narrative HPI Narrative: JODI CLARK, is a 76 M who presents after a ground-level fall off of a ladder getting off the bed of his pickup truck on 05/22/2021 medially had pain inability ambulate taken to the emergency room where x-rays demonstrated a right displaced femoral neck fracture history of left total hip arthroplasty intact. [facility] Medical History (Updated 05/23/21 @ 09:[address] Dmitry Ng DO) Former smoker GI bleed High cholesterol Home Medications atorvastatin 40 mg PO DAILY 05/22/21 [History Last Taken 05/22/21] dorzolamide-timolol 1 drp EACH EYE BID 05/22/21 [History Last Taken Unknown] latanoprost 1 drp EACH EYE QHS 05/22/21 [History Last Taken Unknown] Allergy/AdvReac Type Severity Reaction Status Date / Time No Known Allergies Allergy Verified 05/22/21 10:26 Family History (Updated 05/22/21 @ 15:[address] Georges Nelson MD) Other Colon cancer Surgical History (Updated 05/22/21 @ 12:[address] Paul Castro DO) History of total left hip replacement Social History (Updated 05/22/21 @ 12:[address] Paul Castro DO) Smoking Status: Former smoker substance use type: does not use Physical Exam Const alert, oriented x3 and no apparent distress General Appearance: cooperative and comfortable Extremity Extremity Narrative: Right lower extremity with palpable pulses no gross motor or sensory deficits no open wounds compartments soft Lab / Micro Data Result Diagrams: 05/23/21 04:52 05/23/21 04:52 Labs: Laboratory Results - last 24 hr 05/22/21 12:04: WBC 9.4, RBC 5.21, Hgb 15.5, Hct 46.8, MCV 89.8, MCH 29.8, MCHC 33.1, RDW Std Deviation 45.7 H, RDW Coeff of Elida 13.8, Plt Count 221, MPV 11.8, Immature Gran % (Auto) 0.400, Neut % (Auto) 74.5 H, Lymph % (Auto) 10.0 L, [place] % (Auto) 12.0 H, Eos % (Auto) 2.8, Baso % (Auto) 0.3, Absolute Neuts (auto) 7.0, Absolute Lymphs (auto) 0.94, Nucleated RBC % 0 05/22/21 12:04: PT 13.0, INR 1.0, APTT 32.2 05/22/21 12:04: Sodium 136, Potassium 4.1, Chloride 105, Carbon Dioxide 26.0, Anion Gap 5, BUN 23 H, Creatinine 0.88, Estim Creat Clear Calc 75.60, Est GFR (MDRD) Af Amer 109, Est GFR (MDRD) Non-Af 90, BUN/Creatinine Ratio 26.1 H, Glucose 125 H, Calcium 8.9, Total Bilirubin 0.80, AST 26, ALT 29, Alkaline Phosphatase 68, Total Protein 7.5, Albumin 3.2, Globulin 4.3 H, Albumin/Globulin Ratio 0.7 L 05/22/21 12:04: Blood Type O POSITIVE, Antibody Screen NEGATIVE 05/23/21 04:52: WBC 8.6, RBC 4.84, Hgb 14.4, Hct 43.7, MCV 90.3, MCH 29.8, MCHC 33.0, RDW Std Deviation 47.0 H, RDW Coeff of Elida 14.2, Plt Count 193, MPV 12.1 H , Immature Gran % (Auto) 0.500, Neut % (Auto) 64.5, Lymph % (Auto) 17.2 L, [place] % (Auto) 13.0 H, Eos % (Auto) 4.5, Baso % (Auto) 0.3, Absolute Neuts (auto) 5.5, Absolute Lymphs (auto) 1.48, Nucleated RBC % 0 05/23/21 04:52: Sodium 135 L, Potassium 3.8, Chloride 104, Carbon Dioxide 24.0, Anion Gap 7, BUN 21 H, Creatinine 0.82, Estim Creat Clear Calc 81.61, Est GFR (MDRD) Af Amer 118, Est GFR (MDRD) Non-Af 97, BUN/Creatinine Ratio 25.5 H, Glucose 89, Calcium 8.3 L Micro: Microbiology 05/22/21 12:26 Nasal Secretion SARS-CoV-2 Antigen (Rapid) - Final Radiology Impression Brain CT 05/22/21 10:44 IMPRESSION: Negative head/brain CT without intravenous contrast. Individualized dose optimization techniques were used for this CT. at 1136 Reported and signed by: Shubham Mendoza MD Electronically Signed: Shubham Mendoza MD at 11:35 EDT Tel , Service support , Hip/Pelvis X-Ray 05/22/21 10:55 IMPRESSION: Fracture of the right femoral neck. at 1139 Reported and signed by: Shubham Mendoza MD Electronically Signed: Shubham Mendoza MD at 11:38 EDT Tel , Service support ,
--- NOTE | 2021-05-23 10:00 | RAD_ITS ---
EXAM: XR RIGHT HIP WITH PELVIS WHEN PERFORMED, 2 OR 3 VIEWS : 1945 CLINICAL INDICATION: Post Op -- AP both hips on single manisha/lateral of op hip PACU TECHNIQUE: Two or three views of the right hip with pelvis when performed. This report was created using [employer] report generation technology. COMPARISON: None 2020 FINDINGS: BONES/JOINTS: Since the reference examination the patient has a right hip prosthesis. Prosthetic is in anatomic alignment. No displaced fracture. No destructive or sclerotic lesions. Note that overlapping bowel shadows may however obscure fine detail. Sacroiliac joint is unremarkable. No widening of the pubic symphisis. SOFT TISSUES: Unremarkable. No soft tissue swelling or gas. RAD/Hip Min 2 Views (Portable) IMPRESSION: Bilateral hip replacements in anatomic alignment. at 1115 Reported and signed by: Shubham Mendoza MD Electronically Signed: Shubham Mendoza MD at 11:14 EDT Tel , Service support ,
--- NOTE | 2021-05-23 10:03 | EKG12_ITS ---
Test Reason : A FIB Blood Pressure : / mmHG Vent. Rate : 110 BPM Atrial Rate : 096 BPM P-R Int : 000 ms QRS Dur : 080 ms QT Int : 336 ms P-R-T Axes : 000 038 031 degrees QTc Int : 454 ms Atrial fibrillation Incomplete right bundle branch block Abnormal ECG Confirmed by ELLY MURCIA, SILVERIO ([id number]), advertising editor JENNY CAMACHO ([id number]) on 05/27/2021 9:50:27 AM Referred By: Abdoul Ordoñez Confirmed By:SILVERIO SANABRIA MD
--- NOTE | 2021-05-23 10:06 | SUR.PHASEI ---
Upon admission to PACU noted rhythm change. EKG ordered and performed; Atrial Fibrillation. Dr. Green informed. Will continue to monitor.
--- NOTE | 2021-05-23 10:30 | SUR.PHASEI ---
Dr. Green consulted Hospitalist d/t new onset afib. Dr. Green administered 5mg metoprolol at 1029. Will continue to monitor.
[2021-05-23 10:32] LABS: Hemoglobin 15.6 g/dL (13.0-16.5); Mean Corp Hgb Conc 33.2 g/dL (32-36); Mean Corpuscular Hgb 30.2 pg (27.0-32.0); Mean Corpuscular Volume 90.9 fL (80-94); Mean Platelet Vol. 11.7 fl (6.2-12.0); Platelet Count 205 K/mm3 (150-450); RBC Distribution Width SD 47.2 fl (35.1-43.9); Red Blood Count 5.17 M/mm3 (4.6-6.2); White Blood Count 11.8 K/mm3 (4.4-11.0)
--- NOTE | 2021-05-23 10:36 | NURSING ---
RECIEVED PHONE CALL FROM [facility] NURSE PRACTITIONER. INFORMED OF PATIENT NEEDING TELE MONITOR POSTOP. STATES REASON IS NEW ONSET AFIB. STATES RATE IS UNCONTROLLED 120'S-140'S. DESK OFFICER CANDIDA ON UNIT. INFORMED [facility] THAT NEW ONSET AFIB/RATE UNCONTROLLED WOULD QUALIFY FOR PCU BED. TAKER OUT TO CALL WITH A BED.
[2021-05-23 10:46] LABS: Anion Gap 9 (5-15); BUN 21 mg/dL (7-18); BUN/Creat Ratio 21.6 RATIO (10-20); Calcium,Total 8.2 mg/dL (8.5-10.1); Chloride 103 mmol/L (98-107); Creatinine, Serum 0.97 mg/dL (0.70-1.30); EST Glomerular Filtration Rate 80 mL/min (>60); Est Glom Filt Rate - Afr Amer 97 mL/min (>60); Estimated Creatinine Clearance 68.99 ml/min; Glucose 98 mg/dL (74-106); Potassium 4.2 mmol/L (3.5-5.1); Sodium Level 136 mmol/L (136-145)
[2021-05-23 10:48] LABS: Albumin, Serum 2.7 g/dL (3.2-5.0)
[2021-05-23 10:53] LABS: Magnesium 1.9 mg/dL (1.6-2.6); Troponin-I HS 10 pg/mL (3.0-78.0)
--- NOTE | 2021-05-23 13:46 | EKG12_ITS ---
Test Reason : RHYTHM CHANGE Blood Pressure : / mmHG Vent. Rate : 084 BPM Atrial Rate : 084 BPM P-R Int : 144 ms QRS Dur : 082 ms QT Int : 346 ms P-R-T Axes : 048 036 028 degrees QTc Int : 408 ms Normal sinus rhythm Incomplete right bundle branch block Confirmed by ELLY MURCIA, SILVERIO ([id number]), slot editor JENNY CAMACHO ([id number]) on 05/26/2021 9:32:07 AM Referred By: CASSIE Confirmed By:SILVERIO SANABRIA MD
--- NOTE | 2021-05-23 14:01 | ECHOD_ITS ---
Reason For Study: [email or web address] Procedure This was a 2D Doppler, Color Flow transthoracic echocardiogram. The study was technically difficult. Exam performed supine due to RT hip surgery 05/23/21. Exam performed portable in patient room. Left Ventricle Normal LV size. Left ventricular systolic function is normal. The estimated ejection fraction is 70 %. No evidence for diastolic dysfunction. No regional wall motion abnormalities noted. Right Ventricle Normal RV size. Normal systolic function. Atria Normal left atrium. Normal right atrium. No doppler evidence for ASD. Mitral Valve There is moderate to severe mitral annular calcification. Extension of the mitral annular calcification on the base of the posterior mitral valve leaflet. Mild focal mitral valve calcification of the anterior leaflet. Trivial mitral valve insufficiency. Tricuspid Valve Normal tricuspid valve. Mild tricuspid valve insufficiency. Right ventricular systolic pressure estimated to be 32 mmHg. Aortic Valve Trisinus/trileaflet aortic valve. Mild focal aortic valve calcification. Pulmonic Valve The pulmonic valve is not well visualized. Great Vessels Normal sized aortic root. Pericardium/Pleural No pericardial effusion. MMode/2D Measurements & Calculations LVIDd: 4.4 cm IVSd: 1.1 cm Ao root diam: 3.5 cm LVIDs: 2.9 cm LVPWd: 1.1 cm RVDd: 3.5 cm FS: 34.8 % LAV(MOD-bp): 56.3 ml LA A4 area: 19.9 cm2 LA dimension(2D): 3.8 cm LAV(MOD-bp) Indexed: 29.4 ml/m2 LAV(MOD-sp2): 52.0 ml LAV(MOD-sp4): 58.3 ml Time Measurements MV dec time: 0.22 sec Doppler Measurements & Calculations MV E max sebastian: 75.9 cm/sec Lat Peak E' Sebastian: 7.6 cm/sec Med Peak E' Sebastian: 6.3 cm/sec MV A max sebastian: 92.0 cm/sec E/E' lat: 10.0 E/E' med: 12.1 MV E/A: 0.82 Ao V2 max: 234.0 cm/sec LV V1 max: 116.2 cm/sec PA V2 max: 120.2 cm/sec Ao max P.9 mmHg LV V1 max P.4 mmHg Ao V2 mean: 153.8 cm/sec LV V1 mean P.4 mmHg Ao mean P.4 mmHg LV V1 mean: 73.4 cm/sec Ao V2 VTI: 38.0 cm LV V1 VTI: 18.7 cm TR max sebastian: 269.1 cm/sec TR max P.0 mmHg ECHO/Echo Complete Interpretation Summary The study was technically difficult. Left ventricular systolic function is normal. The estimated ejection fraction is 70 %. There is moderate to severe mitral annular calcification. Extension of the mitral annular calcification on the base of the posterior mitr al valve leaflet. Mild focal mitral valve calcification of the anterior leaflet. Trivial mitral valve insufficiency. Mild tricuspid valve insufficiency. Mild focal aortic valve calcification. Right ventricular systolic pressure estimated to be 32 mmHg. No evidence for diastolic dysfunction. Ordering Physician: Paul Castro Referring Physician: Rigo Cramer Chi Performed By: Janis Sol, RAFIQ, RVT
[2021-05-23] MEDS: Acetaminophen 500 MG Tablet 1000 MG PO ×2 (14:07→21:30)
--- NOTE | 2021-05-23 15:27 | PN.HOSP_ITS ---
Subjective Subjective Doing well, minimal pain after surgery. He did go into A. fib when he was doing reversed however this terminated after single dose of metoprolol and he is back to normal sinus rhythm. Denies any chest pain lightheadedness or dizziness. She has has never had anything like this before. Objective Data Objective Data Vital Signs: Vital Signs Temp Pulse Resp BP Pulse Ox 97.7 F L 152 H 18 117/78 95 05/23/21 13:24 05/23/21 13:24 05/23/21 13:24 05/23/21 13:24 05/23/21 13:24 Oxygen Delivery Method Room Air Weight: 163 lb 8 oz Body Mass Index (BMI) 23.4 Intake & Output: Intake and Output for Last 24 Hours 05/22/21 05/23/21 05/24/21 03:59 03:59 03:59 Intake Total 300 / 300 786.25 / 786.25 Output Total 800 / 800 400 / 400 Balance -500 / -500 386.25 / 386.25 Lab / Micro Data Result Diagrams: 05/23/21 10:23 05/23/21 10:23 Labs: Laboratory Results - last 24 hr 05/23/21 04:52: WBC 8.6, RBC 4.84, Hgb 14.4, Hct 43.7, MCV 90.3, MCH 29.8, MCHC 33.0, RDW Std Deviation 47.0 H, RDW Coeff of Elida 14.2, Plt Count 193, MPV 12.1 H , Immature Gran % (Auto) 0.500, Neut % (Auto) 64.5, Lymph % (Auto) 17.2 L, [place] % (Auto) 13.0 H, Eos % (Auto) 4.5, Baso % (Auto) 0.3, Absolute Neuts (auto) 5.5, Absolute Lymphs (auto) 1.48, Nucleated RBC % 0 05/23/21 04:52: Sodium 135 L, Potassium 3.8, Chloride 104, Carbon Dioxide 24.0, Anion Gap 7, BUN 21 H, Creatinine 0.82, Estim Creat Clear Calc 81.61, Est GFR (MDRD) Af Amer 118, Est GFR (MDRD) Non-Af 97, BUN/Creatinine Ratio 25.5 H, Glucose 89, Calcium 8.3 L 05/23/21 10:23: WBC 11.8 H, RBC 5.17, Hgb 15.6, Hct 47.0, MCV 90.9, MCH 30.2, MCHC 33.2, RDW Std Deviation 47.2 H, RDW Coeff of Elida 14.0, Plt Count 205, MPV 11.7 05/23/21 10:23: Magnesium 1.9, Troponin I High Sens 10 05/23/21 10:23: Albumin 2.7 L 05/23/21 10:23: Sodium 136, Potassium 4.2, Chloride 103, Carbon Dioxide 24.0, Anion Gap 9, BUN 21 H, Creatinine 0.97, Estim Creat Clear Calc 68.99, Est GFR (MDRD) Af Amer 97, Est GFR (MDRD) Non-Af 80, BUN/Creatinine Ratio 21.6 H, Glucose 98, Calcium 8.2 L 05/23/21 10:23: TSH 2.30 Micro: Microbiology 05/22/21 12:26 Nasal Secretion SARS-CoV-2 Antigen (Rapid) - Final Radiography Diagnostic Testing: Radiology Impression Hip X-Ray 05/23/21 10:00 IMPRESSION: Bilateral hip replacements in anatomic alignment. at 1115 Reported and signed by: Shubham Mendoza MD Electronically Signed: Shubham Mendoza MD at 11:14 EDT Tel , Service support , Physical Exam Const alert, oriented x3 and no apparent distress General Appearance: cooperative HEENT normocephalic and moist oral mucous membranes Eyes PERRL, EOMs intact bilaterally and conjunctivae normal Neck supple and no JVD Resp normal respiratory effort, no retractions, no use of accessory muscles and clear to auscultation bilaterally Auscultation: Negative for crackles, rales, rhonchi or wheezes Cardio regular rate, regular rhythm, S1 normal heart sound, S2 normal heart sound and no murmurs GI soft to palpation, non-tender and non-distended; Negative for hepatosplenomegaly Extremity no clubbing, cyanosis or edema Right Lower Extremity: hip joint other (Pain to palpation) Skin no rashes or lesions noted Neuro no focal motor deficits and no sensory deficits noted Psych affect normal Appearance: appropriate Assessment & Plan Assessment/Plan (1) Fracture of femoral neck, right, closed: QUALIFIERS: Encounter type: initial encounter Qualified Code(s): S72.001A - Fracture of unspecified part of neck of right femur, initial encounter for closed fracture PLAN: 1. Right femoral neck fracture status post repair 05/23/2021 -Status post mechanical fall -PT/OT -Morphine and oxycodone for pain -Eliquis for postoperative anticoagulation 2. Hyperlipidemia/new onset A. fib -Heart rate climbed to the to about 120 with occasional spikes up into the 130s 140s. He was given 5 metoprolol in the OR and he is now back in the normal sinus rhythm. He is going to be on Eliquis 2.5 mg p.o. twice daily per orthopedic surgery -We will continue to monitor on telemetry and will obtain a TSH and an echo -If he does not go back into A. fib during his hospitalization would recommend follow-up as an outpatient with cardiology otherwise we will plan on starting him on a rate control medication and anticoagulation. DVT: Eliquis Charges/Coding Visit Charges Inpatient E&M: 76928 Subs Hosp L2
--- NOTE | 2021-05-23 19:47 | PCS.PANDOC ---
PANDEMIC DOCUMENTATION INITIATED: Date: 05/03/2021 Time: 190
[2021-05-23] MEDS: Senna/Docusate Sodium 1 Tablet 2 TABLET PO (21:30)
[2021-05-23] MEDS: Atorvastatin Calcium 40 MG Tablet PO (21:30)
[2021-05-24] VITALS (11 sets, daily range): BP systolic 123–154; BP diastolic 73–92; PULSE 72–95; RESP 15–16; TEMP 36.9–37.3; O2SAT 94–96; BMI 23.5
[2021-05-24] MEDS: Cefazolin 1 GM/50 ML BAG IV ×2 (00:20→09:14)
[2021-05-24] MEDS: Acetaminophen 500 MG Tablet 1000 MG PO ×3 (05:57→21:11)
[2021-05-24] MEDS: APIXABAN 2.5 MG TABLET PO ×2 (05:58→21:12)
[2021-05-24 06:22] LABS: Hematocrit 42.1 % (40-54); Hemoglobin 13.8 g/dL (13.0-16.5); Mean Corp Hgb Conc 32.8 g/dL (32-36); Mean Corpuscular Hgb 29.9 pg (27.0-32.0); Mean Corpuscular Volume 91.1 fL (80-94); Mean Platelet Vol. 12.3 fl (6.2-12.0); Platelet Count 200 K/mm3 (150-450); RBC Distribution Width CV 13.9 % (11.6-14.6); RBC Distribution Width SD 46.5 fl (35.1-43.9); Red Blood Count 4.62 M/mm3 (4.6-6.2)
[2021-05-24 06:50] LABS: Anion Gap 7 (5-15); BUN 20 mg/dL (7-18); BUN/Creat Ratio 24.2 RATIO (10-20); Calcium,Total 7.8 mg/dL (8.5-10.1); Chloride 103 mmol/L (98-107); Creatinine, Serum 0.83 mg/dL (0.70-1.30); EST Glomerular Filtration Rate 97 mL/min (>60); Est Glom Filt Rate - Afr Amer 117 mL/min (>60); Estimated Creatinine Clearance 80.62 ml/min; Glucose 96 mg/dL (74-106); Potassium 3.6 mmol/L (3.5-5.1); Sodium Level 134 mmol/L (136-145)
--- NOTE | 2021-05-24 09:59 | PN.ORTHO_ITS ---
Subjective Subjective DOS: 05/23/2021, right hip hemiarthroplasty. Upon entering room he is seated and resting comfortably. He states that his pain is a 5/10, but that he thinks his pain is well controlled. He denies shortness of breath, chest pain, fevers, chills or other concerns. Objective Data Objective Data Vital Signs: Vital Signs Temp Pulse Resp BP Pulse Ox 98.6 F 76 16 154/92 H 94 05/24/21 03:55 05/24/21 06:43 05/24/21 03:55 05/24/21 03:55 05/24/21 03:55 Oxygen Delivery Method Room Air Weight: 163 lb 8 oz Body Mass Index (BMI) 23.4 Intake & Output: Intake and Output for Last 24 Hours 05/22/21 05/23/21 05/24/21 23:59 23:59 23:59 Intake Total 300 / 300 3365.33 / 3725.33 863.5 / 863.5 Output Total 800 / 800 400 / 975 1025 / 1025 Balance -500 / -500 2965.33 / 2750.33 -161.5 / -161.5 Lab / Micro Data Result Diagrams: 05/24/21 04:56 05/24/21 04:56 Labs: Laboratory Results - last 24 hr 05/23/21 10:23: WBC 11.8 H, RBC 5.17, Hgb 15.6, Hct 47.0, MCV 90.9, MCH 30.2, MCHC 33.2, RDW Std Deviation 47.2 H, RDW Coeff of Elida 14.0, Plt Count 205, MPV 11.7 05/23/21 10:23: Magnesium 1.9, Troponin I High Sens 10 05/23/21 10:23: Albumin 2.7 L 05/23/21 10:23: Sodium 136, Potassium 4.2, Chloride 103, Carbon Dioxide 24.0, Anion Gap 9, BUN 21 H, Creatinine 0.97, Estim Creat Clear Calc 68.99, Est GFR (MDRD) Af Amer 97, Est GFR (MDRD) Non-Af 80, BUN/Creatinine Ratio 21.6 H, Glucose 98, Calcium 8.2 L 05/23/21 10:23: TSH 2.30 05/24/21 04:56: WBC 9.0, RBC 4.62, Hgb 13.8, Hct 42.1, MCV 91.1, MCH 29.9, MCHC 32.8, RDW Std Deviation 46.5 H, RDW Coeff of Elida 13.9, Plt Count 200, MPV 12.3 H 05/24/21 04:56: Sodium 134 L, Potassium 3.6, Chloride 103, Carbon Dioxide 24.0, Anion Gap 7, BUN 20 H, Creatinine 0.83, Estim Creat Clear Calc 80.62, Est GFR (MDRD) Af Amer 117, Est GFR (MDRD) Non-Af 97, BUN/Creatinine Ratio 24.2 H, Glucose 96, Calcium 7.8 L Micro: Microbiology 05/22/21 12:26 Nasal Secretion SARS-CoV-2 Antigen (Rapid) - Final Radiography Diagnostic Testing: Radiology Impression Hip X-Ray 05/23/21 10:00 IMPRESSION: Bilateral hip replacements in anatomic alignment. at 1115 Reported and signed by: Shubham Mendoza MD Electronically Signed: Shubham Mendoza MD at 11:14 EDT Tel , Service support , Physical Exam Extremity Extremity Narrative: Right hip dressing clean, dry and intact. Negative Homans, compartments soft. He is able to plantarflex, dorsiflex and wiggle his toes. Pedal pulses are palpable. Intact sensation to light touch throughout right lower extremity. Assessment & Plan Assessment/Plan (1) Fall: PLAN: Postop day #1 right hip hemiarthroplasty PT/OT weightbearing as tolerated, hip precautions DVT prophylaxis SCDs thigh-high MOON hose Eliquis 2.5 mg twice daily for 3 weeks post-op Pain control Tylenol Oxycodone Eliquis and Oxycodone sent to [facility] pharmacy Dressing to be left on 72 hours postop, do not shower for 72 hours After 72 hours may remove dressing begin showering with antibacterial soap pat dry replace with dry bandage daily Follow-up in office in 2 weeks for staple removal Call the office with any questions or concerns (2) Fracture of femoral neck, right, closed: QUALIFIERS: Encounter type: initial encounter Qualified Code(s): S72.001A - Fracture of unspecified part of neck of right femur, initial encounter for closed fracture
[2021-05-24] MEDS: Senna/Docusate Sodium 1 Tablet 2 TABLET PO ×2 (10:59→21:11)
--- NOTE | 2021-05-24 14:21 | PCM.PN.HOSP ---
Documented by User: Alcira Chang NP, GLOBAL MARKETING COORDINATOR-C 05/24/21 14:29 Subjective Subjective Patient seen and examined. Denies significant pain. States he did not do well with therapy yesterday however is hoping to go home with home therapies at discharge. Denies chest pain, palpitations, shortness of breath. Objective Data Objective Data Vital Signs: Vital Signs Temp Pulse Resp BP Pulse Ox 98.4 F 79 15 132/75 H 94 05/24/21 10:51 05/24/21 11:59 05/24/21 10:51 05/24/21 10:51 05/24/21 10:51 Oxygen Delivery Method Room Air Weight: 163 lb 8 oz Body Mass Index (BMI) 23.4 Intake & Output: Intake and Output for Last 24 Hours 05/22/21 05/23/21 05/24/21 23:59 23:59 23:59 Intake Total 300 / 300 3365.33 / 3725.33 1363.5 / 1363.5 Output Total 800 / 800 400 / 975 1700 / 1700 Balance -500 / -500 2965.33 / 2750.33 -336.5 / -336.5 Lab / Micro Data Result Diagrams: 05/24/21 04:56 05/24/21 04:56 Labs: Laboratory Results - last 24 hr 05/23/21 10:23: TSH 2.30 05/24/21 04:56: WBC 9.0, RBC 4.62, Hgb 13.8, Hct 42.1, MCV 91.1, MCH 29.9, MCHC 32.8, RDW Std Deviation 46.5 H, RDW Coeff of Elida 13.9, Plt Count 200, MPV 12.3 H 05/24/21 04:56: Sodium 134 L, Potassium 3.6, Chloride 103, Carbon Dioxide 24.0, Anion Gap 7, BUN 20 H, Creatinine 0.83, Estim Creat Clear Calc 80.62, Est GFR (MDRD) Af Amer 117, Est GFR (MDRD) Non-Af 97, BUN/Creatinine Ratio 24.2 H, Glucose 96, Calcium 7.8 L Micro: Microbiology 05/22/21 12:26 Nasal Secretion SARS-CoV-2 Antigen (Rapid) - Final Radiography Diagnostic Testing: Radiology Impression Echocardiogram 05/23/21 14:01 Interpretation Summary The study was technically difficult. Left ventricular systolic function is normal. The estimated ejection fraction is 70 %. There is moderate to severe mitral annular calcification. Extension of the mitral annular calcification on the base of the posterior mitral valve leaflet. Mild focal mitral valve calcification of the anterior leaflet. Trivial mitral valve insufficiency. Mild tricuspid valve insufficiency. Mild focal aortic valve calcification. Right ventricular systolic pressure estimated to be 32 mmHg. No evidence for diastolic dysfunction. Ordering Physician: Paul Castro Referring Physician: Rigo Cramer Chi Performed By: Janis Sol, RAFIQ, RVT Physical Exam Const alert, oriented x3 and no apparent distress Orientation / Consciousness: awake, oriented to person, oriented to place and oriented to time HEENT normocephalic and moist oral mucous membranes Eyes PERRL, EOMs intact bilaterally and conjunctivae normal Neck no lymphadenopathy Resp normal respiratory effort and clear to auscultation bilaterally Cardio regular rate and regular rhythm Peripheral Pulses: pulses 2+ throughout GI normal to inspection, nondistended, normoactive bowel sounds, non-tender and non-distended Extremity normal to inspection Skin no rashes or lesions noted Skin Narrative: Right hip dressing intact Lesions: no lesions Rashes: no rashes Trauma: no lacerations or abrasions Neuro CN's II-XII intact bilaterally, no focal motor deficits, no sensory deficits noted and deep tendon reflexes 2+ bilaterally Psych mental status grossly normal and affect normal Assessment & Plan Assessment/Plan (1) Fracture of femoral neck, right, closed: QUALIFIERS: Encounter type: initial encounter Qualified Code(s): S72.001A - Fracture of unspecified part of neck of right femur, initial encounter for closed fracture PLAN: 1. Traumatic right femoral neck displaced fracture status post right hip hemiarthroplasty 05/23/2021-management per orthopedic medicine. PT/OT. As needed pain regimen. Eliquis 2.5 mg twice a day for 3 weeks for DVT prophylaxis. Postop dressing may be removed 72 hours postop. Follow-up with Ortho in 2 weeks. Possible SNF/rehab at discharge. 2. New onset A. fib, postoperative-does not appear to have recurrent A. fib. Echocardiogram demonstrates an EF of 70%, moderate to severe mitral annular calcification. Will initiate low-dose metoprolol. TSH normal. On Eliquis for DVT prophylaxis as noted above. [id number] 1, low to moderate risk and ongoing antiplatelet/anticoagulation should be further discussed as outpatient. Recommend follow-up with cardiology at discharge. 3. Hyperlipidemia-continue statin. DVT prophylaxis-Eliquis Discharge planning: Appears patient did poorly with therapy today, anticipate SNF/rehab at discharge. This patient was seen by ASHLEE De Los Santos under the supervision of Dr. Dowling. Documented by User: Dr. Shaggy Dowling MD 05/24/21 14:48 Subjective Subjective Patient had postop A. fib with RVR and converted to sinus rhythm with single dose of metoprolol. Patient had right hip fracture status post operative surgery. Sinus rhythm playground monitor. Objective Data Lab / Micro Data Result Diagrams: 05/24/21 04:56 05/24/21 04:56 Physical Exam Narrative General: Alert, Oriented x3, Cooperative HEENT: Atraumatic, PERRLA, EOMI, Normocephalic Oral: No Gingival or Mucosal Lesions/ Ulcerations Neck: Supple, No JVD, Negative Carotid Bruits Lungs: Air entry diminished in bilateral lung bases. No crepitation/rhonchi Cardiovascular: Sinus rhythm with PVCs, Normal S1, Normal S2, No murmurs Abdomen: Bowel Sounds Present, Soft, Non Tender, Non-Distended : No renal angle tenderness. No suprapubic tenderness. Extremities: No edema, Capillary Refill Less than 3 Seconds Skin: No rashes, No breakdown Musculoskeletal: Right hip surgical dressing is dry. No noticeable hematoma. Status post left hip surgery for fracture in the past. Neurological: Cranial nerves II-XII grossly intact, DTR 2+/4 and Symmetrical, Neuro grossly intact Psych/Mental Status: Normal Affect, Appropriate. Assessment & Plan Assessment/Plan (1) Fracture of femoral neck, right, closed: QUALIFIERS: Encounter type: initial encounter Qualified Code(s): S72.001A - Fracture of unspecified part of neck of right femur, initial encounter for closed fracture PLAN: This patient was seen in conjunction with Alcira ORTEGA. I have independently interviewed and examined the patient and reviewed pertinent history, examination findings, laboratory and plan of management. I have reviewed the note and agree with the documented findings with the few additional points. In brief, patient is admitted for traumatic right femoral neck fracture status post right hip hemiarthroplasty on 05/23/2021. PT and OT. Patient will need SNF, caseworker protective services PT and OT to follow. New onset A. fib postoperatively. 2D echo was done and reported EF 70%, as mentioned above. No appreciable valvular stenosis or regurgitation. [id number] score 1. DVT prophylaxis with Eliquis 2.5 twice daily for 35 days post surgery. Other comorbidities as mentioned above I have discussed my assessment with Alcira ORTEGA and orders have been reviewed. Charges/Coding Visit Charges Inpatient E&M: 83350 Subs Hosp L2
[2021-05-24] MEDS: oxyCODONE 5 MG Tablet PO (15:35)
[2021-05-24] MEDS: Metoprolol Tartrate 25 MG Tablet 12.5 MG PO ×2 (15:35→21:13)
[2021-05-24] MEDS: Atorvastatin Calcium 40 MG Tablet PO (21:11)
[2021-05-25] VITALS (8 sets, daily range): BP systolic 109–140; BP diastolic 65–89; PULSE 69–76; RESP 14–16; TEMP 36.6–37; O2SAT 93–97
[2021-05-25] MEDS: Acetaminophen 500 MG Tablet 1000 MG PO ×2 (06:11→13:41)
[2021-05-25 06:32] LABS: Hematocrit 38.8 % (40-54); Mean Corp Hgb Conc 33.5 g/dL (32-36); Mean Corpuscular Volume 89.4 fL (80-94); Platelet Count 197 K/mm3 (150-450); RBC Distribution Width CV 13.9 % (11.6-14.6); RBC Distribution Width SD 45.2 fl (35.1-43.9); Red Blood Count 4.34 M/mm3 (4.6-6.2); White Blood Count 9.7 K/mm3 (4.4-11.0)
[2021-05-25] MEDS: APIXABAN 2.5 MG TABLET PO (08:29)
[2021-05-25] MEDS: Senna/Docusate Sodium 1 Tablet 2 TABLET PO (08:29)
[2021-05-25] MEDS: Metoprolol Tartrate 25 MG Tablet 12.5 MG PO (08:32)
--- NOTE | 2021-05-25 10:53 | CASEMGMT ---
QUINN SHARMA assessment: Face to Face with patient for initial transition planning/care coordination assessment. QUINN SHARMA introduced self and role at [facility], pt voices understanding and consents to assessment. Pt is sitting up in chair on room air. Pt is A/Ox4 and answers all questions appropriately. Care providers, pharmacy, and demographics verified. Presentation: mechanical fall, right hip pain, hit head-no loc, no blood thinners Admitting dx: Hip fracture PCP: Shoaib Specialists: Sofia-glaucoma Preferred Pharmacy: [facility](not in-network)/[facility]-Per website, [facility] is the only pharmacy not [id number] to be updated by pharmacist and to see if meds to be transferred to another local pharmacy. Insurance: [facility] Prescription Benefit: [employer] Living Will/HPOA: Pt states does not have LW/HPOA and declines info. LNOK: Milagros Marie, Living Arrangements: Pt states lives with in 1 story home with 3 steps in and states no concerns at home. Pt is normally independent with ADL's. Transportation: Pt/ drive and states no transportation concerns. DME/HHC: Pt states has the following DME: WW, cane, and shower chair. Pt states no need for any further DME. Pt states no hx of HHC or SNF. Per therapy notes, they are recommending HHC vs OP therapy for pt at discharge. Pt is updated on recommendations and difference between HHC/OP. Pt states he would like OP therapy at [facility] and script obtained/faxed to [facility] at this time. Pt provided with [facility] script and copy to pt. Pt states no concerns with going home at time of discharge. Pt is retired. Pt states does not smoke cigarettes or drink ETOH. Pt states no further concerns/needs. CM to follow for any further discharge planning/needs. Advised pt to ask for CM if any further questions/concerns/needs arise, voices understanding. Pt Goal: Home Plan: Home w/ OP therapy. [place] QUINN SHARMA
--- NOTE | 2021-05-25 11:14 | PCM.DC ---
Discharge Instructions Diet Discharge Diet: No restrictions Activity Discharge Activity: Return to Normal Activity Weight Bearing Status: Weight bearing as tolerated Dressing / Incision Call your doctor if you observe: Fever of 101 or Higher, Numbness or Tingling, Shortness of breath, Dizziness, Chest pain, Increased palpitations (irregular heartbeat) and Calf discomfort Follow Up Care Please Follow Up With: Primary care provider When: Within the next two weeks. Test Results: Test results from this visit will be discussed in further detail at your follow-up appointment, if applicable. Discharge Plan Admission Admit Date/Time: 05/22/21 13:18 Primary Reason for Your Visit: Fall + right femoral neck fracture. Attending Provider: Shaggy Dowling Primary Care Provider: Rigo Cramer Chi Discharge Orders/Prescriptions Prescriptions: New metoprolol tartrate 25 mg tablet 12.5 mg PO BID Qty: 30 RF: 0 atorvastatin 40 mg tablet 40 mg PO QHS Qty: 30 RF: 0 Continued latanoprost 0.005 % drops 1 drp EACH EYE QHS RF: 0 dorzolamide-timolol 22.3-6.8 mg/mL drops 1 drp EACH EYE BID RF: 0 lisinopril 40 mg Tablet 40 mg PO DAILY RF: 0 oxycodone 5 mg tablet 5 - 10 mg PO Q4H PRN (Reason: pain) 5 Days Qty: 60 RF: 0 Eliquis 2.5 mg tablet 2.5 mg PO BID 21 Days Qty: 42 RF: 0 Referrals / Follow Up: Dmitry Ng DO [STAFF PHYSICIAN] - Within 2 Weeks (Follow up appointment within 2-3 weeks for right hip hemiathroplasty. ) Mike aHtfield MD [STAFF PHYSICIAN] - Within 2 Weeks (Establish care due to new onset Atrial Fibrillation. ) Rigo Cramer Chi, MD [Primary Care Provider] - Within 2 Weeks Disposition Disposition (needs filled in before D/C Order can be placed): Home, Self Care
--- NOTE | 2021-05-25 11:56 | CASEMGMT ---
Pt to be sent home on Eliquis at discharge and med e-scribed to [facility] retail pharmacy previously. Eliquis 30 day free trial card applied for the 21 day dose so pt has no co-pay at this time. Eugenio BALL CM
--- NOTE | 2021-05-25 12:34 | PHA.DC.MC ---
Addendum entered and electronically signed by Steff Sewell 05/25/21 12:35: This [facility] notified patient that our retail pharmacy is not covered under his insurance and total cost for medications is $44. I offered to have the metoprolol and atorvastatin transferred since Eliquis is free with 30-day card and oxycodone is non-transferrable. Patient is okay with paying for the medications here. Retail pharmacy and RN CM updated. Patient stated he may not need Lipitor as he was previously on this and may have the medication at home. Original Note: Pharmacy Service has performed discharge medication reconciliation and counseling for this patient. 1. APIXABAN 2.5MG PO BID X 21 DAYS 2. METOPROLOL TARTRATE 12.5MG PO BID 3. OXYCODONE 5-10MG PO Q4H PRN PAIN The patient's discharge medication list was reviewed for discrepancies and discrepancies were resolved. Home Medications dorzolamide-timolol 1 drp EACH EYE BID 05/22/21 latanoprost 1 drp EACH EYE QHS 05/22/21 apixaban 2.5 mg tablet 2.5 mg PO BID 21 Days #42 tab 05/24/21 lisinopril 40 mg PO DAILY 05/24/21 oxycodone 5 mg tablet 5 - 10 mg PO Q4H PRN 5 Days #60 tab 05/24/21 atorvastatin 40 mg PO QHS #30 tab 05/25/21 metoprolol tartrate 12.5 mg PO BID #30 tab 05/25/21 The patient was counseled on the following discharge medications and changes in medications for homegoing were reviewed. The Reason for Use, instructions for use, and potential side effects were reviewed for all new medications. The patient's questions regarding all of their medications were answered. The patient was able to verbally demonstrate an understanding of their discharge medications.
--- NOTE | 2021-05-25 14:05 | DS.PCM_ITS ---
Documented by User: Abdoul ARAGON 05/25/21 15:47 Providers Date of Admission: 05/22/21 Primary Care Physician: Dr. Rigo Cramer MD Reason For Visit: HIP FX Diagnosis Discharge Diagnosis (1) Fracture of femoral neck, right, closed: Status: Acute Code(s): S72.001A - Fracture of unspecified part of neck of right femur, initial encount er for closed fracture Qualifiers: Encounter type: initial encounter Qualified Code(s): S72.001A - Fracture of unspecified part of neck of right femur, initial encounter for closed fracture Medications at Discharge Home Medications dorzolamide-timolol 1 drp EACH EYE BID 05/22/21 latanoprost 1 drp EACH EYE QHS 05/22/21 lisinopril 40 mg PO DAILY 05/24/21 oxycodone 5 mg tablet 5 - 10 mg PO Q4H PRN 5 Days #60 tab 05/24/21 apixaban [Eliquis] 2.5 mg PO BID #70 tab 05/25/21 atorvastatin 40 mg PO QHS #30 tab 05/25/21 metoprolol tartrate 12.5 mg PO BID #30 tab 05/25/21 Hospital Course Procedures 2-D Echocardiogram Summary of Care Provided Minutes Spent on Discharge: 35 Hospital Course: Disposition: Patient to discharge home with home health care for ongoing outpatient therapy. 1) Traumatic right femoral neck displaced fracture Status post right hip hemiarthroplasty 05/23/2021-management per orthopedic medicine. Eliquis 2.5 mg twice a day for 3 weeks for DVT prophylaxis. Follow-up with Ortho in 2 weeks. Patient to discharge home with home health care for additional therapy. 2) New onset A. fib Postoperative-does not appear to have recurrent A. fib. Echocardiogram demonstrates an EF of 70%, moderate to severe mitral annular calcification. Will initiate low-dose metoprolol. TSH normal. Metoprolol initiated for rate control. Eliquis initiated per orthopedic medicine team. Recommend follow-up with primary care provider for ongoing anticoagulant therapy. 3) Hyperlipidemia Continue statin. Patient seen by Abdoul Ordoñez PA-C, under the supervision of Dr. Dowling. Physical Exam Narrative Patient is a 76-year-old male comfortably resting in bed, alert and oriented x3. Patient patient reports that pain from surgery is currently controlled, denies development of any new symptoms overnight. Denies chest pain, shortness of breath, palpitations, hemoptysis, sputum production, fever, chills, N/V/D. Const alert, oriented x3 and no apparent distress HEENT normocephalic, head/scalp atraumatic and hearing grossly normal bilaterally Eyes PERRL, EOMs intact bilaterally and conjunctivae normal Neck no lymphadenopathy, supple and no JVD Resp normal respiratory effort, no retractions, no use of accessory muscles and clear to auscultation bilaterally Cardio regular rate, regular rhythm, no murmurs and no JVD GI normal to inspection, nondistended, normoactive bowel sounds, soft to palpation and non-tender Extremity normal to inspection, full ROM and no clubbing, cyanosis or edema Skin no rashes or lesions noted, no wounds and skin turgor normal Neuro CN's II-XII intact bilaterally Psych affect normal Weight / BMI Weight Weight: 163 lb 8 oz Body Mass Index (BMI) 23.4 ABG / Lab / Microbiology Data Result Diagrams: 05/25/21 05:55 05/24/21 04:56 Laboratory: Laboratory Results - last 24 hr 05/25/21 05:55: WBC 9.7, RBC 4.34 L, Hgb 13.0, Hct 38.8 L, MCV 89.4, MCH 30.0, MCHC 33.5, RDW Std Deviation 45.2 H, RDW Coeff of Elida 13.9, Plt Count 197, MPV 12.0 Microbiology: Microbiology 05/22/21 12:26 Nasal Secretion SARS-CoV-2 Antigen (Rapid) - Final D/C Instructions Discharge Diet: No restrictions Weight Bearing Status: Weight bearing as tolerated Call your doctor if you observe: Fever of 101 or Higher, Numbness or Tingling, Shortness of breath, Dizziness, Chest pain, Increased palpitations (irregular heartbeat) and Calf discomfort Please Follow Up With: Primary care provider When: Within the next two weeks. Meaningful Use Info Meaningful Use Diagnoses (Choose all that apply): None applicable Discharge Plan Admission Admit Date/Time: 05/22/21 13:18 Primary Reason for Your Visit: Fall + right femoral neck fracture. Attending Provider: Shaggy Dowling Primary Care Provider: Rigo Cramer Chi Instructions Additional Instructions / Restrictions: Patient Problems: Altered Health Status related to Hospitalization Patient Goals: *Optimal Level of Health *Keep Appointments *Medication Compliance *Remain Safe Discharge Orders/Prescriptions Prescriptions: New metoprolol tartrate 25 mg tablet 12.5 mg PO BID Qty: 30 RF: 0 atorvastatin 40 mg tablet 40 mg PO QHS Qty: 30 RF: 0 Eliquis 2.5 mg tablet 2.5 mg PO BID Qty: 70 RF: 0 Continued latanoprost 0.005 % drops 1 drp EACH EYE QHS RF: 0 dorzolamide-timolol 22.3-6.8 mg/mL drops 1 drp EACH EYE BID RF: 0 lisinopril 40 mg Tablet 40 mg PO DAILY RF: 0 oxycodone 5 mg tablet 5 - 10 mg PO Q4H PRN (Reason: pain) 5 Days Qty: 60 RF: 0 Discontinued Eliquis 2.5 mg tablet 2.5 mg PO BID 21 Days Qty: 42 RF: 0 Referrals / Follow Up: Dmitry Ng DO [STAFF PHYSICIAN] - Within 2 Weeks (Follow up appointment within 2-3 weeks for right hip hemiathroplasty. ) Mike Hatfield MD [STAFF PHYSICIAN] - Within 2 Weeks (Establish care due to new onset Atrial Fibrillation. ) Rigo Cramer Chi, MD [Primary Care Provider] - Within 2 Weeks Disposition Disposition (needs filled in before D/C Order can be placed): Home, Self Care Documented by User: Dr. Shaggy Dowling MD 05/25/21 15:00 Providers Date of Admission: 05/22/21 Date of Discharge: 05/25/21 Reason For Visit: HIP FX Medications at Discharge Home Medications dorzolamide-timolol 1 drp EACH EYE BID 05/22/21 latanoprost 1 drp EACH EYE QHS 05/22/21 lisinopril 40 mg PO DAILY 05/24/21 oxycodone 5 mg tablet 5 - 10 mg PO Q4H PRN 5 Days #60 tab 05/24/21 apixaban [Eliquis] 2.5 mg PO BID #70 tab 05/25/21 atorvastatin 40 mg PO QHS #30 tab 05/25/21 metoprolol tartrate 12.5 mg PO BID #30 tab 05/25/21 Hospital Course Summary of Care Provided Hospital Course: This patient was seen in conjunction with MARGO De La O. I have independently interviewed and examined the patient and reviewed pertinent history, examination findings, laboratory and plan of management. I have reviewed the note and agree with the documented findings with the few additional points. In brief, patient is admitted for traumatic right femoral neck fracture status post right hip hemiarthroplasty on 05/23/2021. PT and OT. Patient will need SNF, clinical case manager PT and OT to follow. New onset A. fib postoperatively. 2D echo was done and reported EF 70%, as mentioned above. No appreciable valvular stenosis or regurgitation. [id number] score 1. DVT prophylaxis with Eliquis 2.5 twice daily for 35 days post surgery. Patient is sent home with home health post acute care nurse practitioner. Discharge medication reconciliation done. Discharge follow-up instructions completed. Discharge process discussed with the patient and all questions were answered to patient's satisfaction. Total time spent, exact 35 minutes on discharge meds reconciliation, examination, coordination of care with nurses and ancillary staff, review of imaging and blood test and discussion with the patient on follow-up instructions Other comorbidities as mentioned above I have discussed my assessment with MARGO De La O and orders have been reviewed. Physical Exam Narrative Seen and examined. jailkeeper shows sinus rhythm. No chest pain or shortness of breath. General: Alert, Oriented x3, Cooperative HEENT: Atraumatic, PERRLA, EOMI, Normocephalic Oral: No Gingival or Mucosal Lesions/ Ulcerations Neck: Supple, No JVD, Negative Carotid Bruits Lungs: Air entry diminished in bilateral lung bases. No crepitation/rhonchi Cardiovascular: Sinus rhythm with PVCs, Normal S1, Normal S2, No murmurs Abdomen: Bowel Sounds Present, Soft, Non Tender, Non-Distended : No renal angle tenderness. No suprapubic tenderness. Extremities: No edema, Capillary Refill Less than 3 Seconds Skin: No rashes, No breakdown Musculoskeletal: Right hip surgical dressing is dry. No noticeable hematoma. Status post left hip surgery for fracture in the past. Neurological: Cranial nerves II-XII grossly intact, DTR 2+/4 and Symmetrical, Neuro grossly intact Psych/Mental Status: Normal Affect, Appropriate. ABG / Lab / Microbiology Data Result Diagrams: 05/25/21 05:55 05/24/21 04:56 Discharge Plan Admission Admit Date/Time: 05/22/21 13:18 Primary Reason for Your Visit: Fall + right femoral neck fracture. Attending Provider: Shaggy Dowling Primary Care Provider: Rigo Cramer Chi Instructions Additional Instructions / Restrictions: Patient Problems: Altered Health Status related to Hospitalization Patient Goals: *Optimal Level of Health *Keep Appointments *Medication Compliance *Remain Safe Discharge Orders/Prescriptions Prescriptions: New metoprolol tartrate 25 mg tablet 12.5 mg PO BID Qty: 30 RF: 0 atorvastatin 40 mg tablet 40 mg PO QHS Qty: 30 RF: 0 Eliquis 2.5 mg tablet 2.5 mg PO BID Qty: 70 RF: 0 Continued latanoprost 0.005 % drops 1 drp EACH EYE QHS RF: 0 dorzolamide-timolol 22.3-6.8 mg/mL drops 1 drp EACH EYE BID RF: 0 lisinopril 40 mg Tablet 40 mg PO DAILY RF: 0 oxycodone 5 mg tablet 5 - 10 mg PO Q4H PRN (Reason: pain) 5 Days Qty: 60 RF: 0 Discontinued Eliquis 2.5 mg tablet 2.5 mg PO BID 21 Days Qty: 42 RF: 0 Referrals / Follow Up: Dmitry Ng DO [STAFF PHYSICIAN] - Within 2 Weeks (Follow up appointment within 2-3 weeks for right hip hemiathroplasty. ) Mike Hatfield MD [STAFF PHYSICIAN] - Within 2 Weeks (Establish care due to new onset Atrial Fibrillation. ) Rigo Cramer Chi, MD [Primary Care Provider] - Within 2 Weeks Disposition Disposition (needs filled in before D/C Order can be placed): Home, Self Care Charges/Coding Visit Charges Inpatient E&M: 57455 Disch Hosp
== END 2021-05-25 15:39 | disposition home or self-care (01) | DRG 522 ==
LOC: ED 12:33 → MS3 13:24 → PCU 05-23 22:07
PROVIDERS: Anesthesiology; Orthopaedic Surgery; Admitting Provider Family Medicine; Emergency Provider Emergency Medicine; PCP Family Medicine Geriatric Medicine; Visit Provider Internal Medicine
PROC: 0SRR0JZ Replacement of Right Hip Joint, Femoral Surface with Synthetic Substitute, Open Approach (ICD-10-PCS; CPT 27125; principal; 2021-05-23 08:00)
DX: S72.001A Fracture of unspecified part of neck of right femur, initial encounter for closed fracture (principal); S00.01XA Abrasion of scalp, initial encounter; S40.011A Contusion of right shoulder, initial encounter; S60.211A Contusion of right wrist, initial encounter; E78.5 Hyperlipidemia, unspecified; Z79.899 Other long term (current) drug therapy; Z87.891 Personal history of nicotine dependence; Z96.642 Presence of left artificial hip joint; W11.XXXA Fall on and from ladder, initial encounter; Y93.89 Activity, other specified; Y92.008 Other place in unspecified non-institutional (private) residence as the place of occurrence of the external cause; Y99.8 Other external cause status; I48.91 Unspecified atrial fibrillation
CPT/HCPCS: 36415; 70450; 73502; 80048; 80053; 82040; 83735; 84443; 84484; 85025; 85027; 85610; 85730; 86850; 86900; 86901; 87426; 88305; 88311; 93005; 93306; 97110; 97162; 97165; 97530; 97535; 99251; 99284; C1776; J7120; A4216; G0463; J2405

== ENCOUNTER → 2021-06-16 07:06 | Outpatient (CLI) | payer MEDICARE, SELFPAY ==
--- NOTE | 2021-06-16 17:33 | STRESSREP_ITS ---
Stress Test Report Date: 06-16-2021 Procedure: Pharmacologic stress nuclear imaging study Indications: Atrial fibrillation Consent: Per the patient Procedure: The patient underwent pharmacologic (Regadenoson 0.4mg ) evaluation with a peak heart rate of 88 beats per minute (60%predicted maximal heart rate) and a peak blood pressure of 132/84 mmHg. The baseline ECG demonstrated sinus rhythm. The peak pharmacologic ECG demonstrated no obvious acute ECG changes. There were no cardiac dysrhythmias pretest, during pharmacologic infusion, or recovery. There was no complaint of chest discomfort during pharmacologic infusion or recovery. The examination was discontinued secondary to completion of protocol. Impression: 1. Pharmacologic (Regadenoson) evaluation 2. Peak pharmacologic ECG with no obvious acute ECG changes 3. There were no cardiac dysrhythmias pretest, during pharmacologic infusion, or recovery. 4. Nuclear images pending Myocardial perfusion imaging study: Technique: The patient was injected with 11.8 millicuries of technetium 99m Cardiolite and subsequently rest SPECT Cardiolite nuclear imaging was obtained in the horizon rosemarie long, vertical long, and short axis views. The patient underwent pharmacologic (Regadenoson) evaluation with a peak heart rate of 88 beats per minute (60% percent predicted maximal heart rate) and a peak blood pressure of 132/84 mmHg. The patient was injected with 32.5 millicuries of technetium 99m Cardiolite and subsequently stress SPECT Cardiolite nuclear imaging was obtained in the horizontal long, vertical long, and short axis views. A gated Cardiolite study at peak stress was obtained. Interpretation: Rest and stress SPECT Cardiolite nuclear imaging status post realignment, normalization, and attenuation correction demonstrate relative uniform tracer uptake and myocardial perfusion appearing within normal limits. There is end systolic thickening and brightening. The gated Cardiolite study demonstrates myocardial thickening and inward wall motion. The reported LVEF is 69%. Impression: 1. Rest and stress SPECT Cardiolite nuclear imaging demonstrate relative uniform tracer uptake and myocardial perfusion appearing within normal limits. 2. The gated Cardiolite study reports an LVEF of 69%. This note was generated with [employer]akeration software. It may contain incorrect words, spelling, and punctuation that were not noted in checking the note before signing.
== END ==
PROVIDERS: PCP Family Medicine Geriatric Medicine; Visit Provider Internal Medicine Cardiovascular Disease
DX: R94.31 Abnormal electrocardiogram [ECG] [EKG] (principal); I48.91 Unspecified atrial fibrillation; I97.89 Other postprocedural complications and disorders of the circulatory system, not elsewhere classified
CPT/HCPCS: 78452; 93017; A9500; A4216; J2785

== ENCOUNTER 2021-08-20 14:00 | Outpatient (RCR) | payer MEDICARE, SELFPAY ==
--- NOTE | 2021-06-01 16:16 | HP.PTEVAL ---
Patient's Visit Information JODI CLARK Jr. is a 76 year old M referred to Physical Therapy by MARGO Cordova with a diagnosis of RIGHT HIP HEMIARHROPLASTY ,S/P HIP FRACTURE. Date of Evaluation: 06/01/21 Physical Therapist: Jaxon Caro, PT, Cert MDT, OCS - Visit Plan Frequency: 2x /Week Duration: 6 Weeks Plan: PT INTERVENTIONS GAIT/BALANCE TRAININGM,HIP ROM ,STRENGTHENING RIGHT HIP ,AND FUNCTIONAL STRENGTHENING - Subjective This 76 y/o male presents to physical therapy with right hip hemiarthroplasty May [address] Vogel at [facility]. Patient was d/c 7th to [facility] . Patient fell at home of off truck tailgate on right side. Patient went ER next day Monday had x-rays showed hip fracture. Patient was d/c to home with fww . Patient has right hip groin pain to knee worsens when walking on it. Denies paresthesia/tingling. Patient has difficulty walking long distances and limitations with standing < 5 mins which impairs ADL'S. Patient has difficulty with stairs with one step at a time. Patient is unable to squat and knee. Patient has been sleeping in recliner due has difficulty sleeping getting own/off bed. HOME SITUTAION: one storry home with 3steps with rail ,tub/shower with grap rail. SOCIAL: . VOCATION: retired - Pain Right Hip Pain Intensity (Out of 10): 6 - Objective POSTURE: mild forward posture. GAIT: ambulates with fww decrease stance time RLE with step length slow karissa mild forward 120 ft with WBAT RLE. BALANCE: fair with fww. STAIRS: one step at time with rails 4 steps. AROM: HIP FLEXION 70 degrees ,supine knee flexion 15-120 degrees, hip abduction 20 degrees. MMT: quads 3+/5,hip flexion 2/3,hamstrings 3+'5,hip abduction 2/5,ankle - Balance/Special Test Scores Lower Extremity Functional Score: 9 - Goals Goal 1:: Patient to be I with HEP to improve gait and function. Goal Time Frame: 4-6 Weeks Goal 2:: Patient to ambulate with community distances with improve gait pattern to get to store with improve quality of gait pattern Goal Time Frame: 4-6 Weeks Goal 3:: Patient increase strength quads/hams 4/5,hip flexion 4-/5,hip abduction 3+/5 to improve gait Goal Time Frame: 4-6 Weeks Goal 4:: Patient to improve right hip /knee ROM to be I with stairs to get to basement and safely leave home. Goal Time Frame: 4-6 Weeks Goal 5:: Patient to improve LFES score by 10 points to improve QOL and RETURN TO PRIOR LEVEL OF FUNCTION. Goal Time Frame: 4-6 Weeks - Rehabilitation Potential Physical Therapy Diagnosis: This patient underwent s/p hip surgery with pain ,decrease hip ROM, decrease strength ,balance and gait /stairs thus benefit from skilled PT Rehabilitation Potential: Good - Anticipated Interventions Patient/Client Instruction: Educate patient on: Condition, Plan of Care For the Purpose of:: To decrease pain, To increase ROM, To improve muscle performance and motor function, To improve ability to perform ADL's, To improve ability of physical actions for home/community/work/leisure, To improve gait and locomotor functions, To improve health of tissue, To decrease soft tissue restriction, To increase flexibility/ROM, To assume or resume ADL's, To reduce risk of recurrence, To improve health and function, To improve tolerance to ADL's Therapeutic Exercise to Include: Strength training, Power training, Balance training, Gait and locomotor training, Active ROM Comment: RLE For the Purpose of:: To decrease pain, To increase ROM, To improve muscle performance and motor function, To improve ability to perform ADL's, To increase tolerance to activity/condition/position, To improve performance and independence with ADL's, To improve ability of physical actions for home/community/work/leisure, To improve gait and locomotor functions, To improve health of tissue, To decrease soft tissue restriction, To increase flexibility/ROM, To improve endurance, To improve balance, To improve safety with gait, To assume or resume ADL's, To improve tolerance to ADL's Thank you for the opportunity to evaluate your patient. For Medicare and Medicare HMO plans, please review the plan of care and approve it. It will need to be FAXED BACK to us at [phone] for Medicare purposes. For Medicare only, by signing this I certify the plan of care. Please let me know if there are questions or concerns regarding this plan of care. Physician Signature: Date:
--- NOTE | 2021-07-14 08:23 | HP.PTREVAL_ITS ---
Dr. Rigo Cramer MD, It has been my pleasure to treat JODI CLARK Jr. over the last 12 visits for RIGHT HIP HEMIARHROPLASTY ,S/P HIP FRACTURE. Please see the progress note below for an update on the physical therapy plan of care! Subjective: Doing well ambulating with no device Objective/Function: POSTURE: mild forward posture. GAIT: ambulated with no device antalgic gait RLE. MMT: quads/hams 4/5,hip flexion 4-/5,ankle 4/5 ,hip abd 3+/5. STAIRS: one step at time with rails. progressing well towards goals Plan Plan: PT INTERVENTIONS GAIT/BALANCE TRAININ,HIP ROM ,STRENGTHENING RIGHT HIP ,AND FUNCTIONAL STRENGTHENING Balance/Gait/Functional tests - Balance/Special Test Scores Lower Extremity Functional Score: 38 Goals Goal 1:: Patient to be I with HEP to improve gait and function. Goal Time Frame: 4-6 Weeks Goal Progress: Progressing Goal 2:: Patient to ambulate with community distances with improve gait pattern to get to store with improve quality of gait pattern Goal Time Frame: 4-6 Weeks Goal Progress: Progressing Goal 3:: Patient increase strength quads/hams 4/5,hip flexion 4-/5,hip abduction 3+/5 to improve gait Goal Time Frame: 4-6 Weeks Goal Progress: Goal Met Goal 4:: Patient to improve right hip /knee ROM to be I with stairs to get to basement and safely leave home. Goal Time Frame: 4-6 Weeks Goal Progress: Progressing Goal 5:: Patient to improve LFES score by 10 points to improve QOL and RETURN TO PRIOR LEVEL OF FUNCTION. Goal Time Frame: 4-6 Weeks Goal Progress: Progressing Goal 6:: DYNAMIC BALANCE GOOD - LEVEL AND UNLEVEL SURFACES Anticipated Interventions Patient/Client Instruction: Educate patient on: Condition, Plan of Care For the Purpose of:: To decrease pain, To increase ROM, To improve muscle performance and motor function, To improve ability to perform ADL's, To improve ability of physical actions for home/community/work/leisure, To improve gait and locomotor functions, To improve health of tissue, To decrease soft tissue restriction, To increase flexibility/ROM, To assume or resume ADL's, To reduce risk of recurrence, To improve health and function, To improve tolerance to ADL' s Therapeutic Exercise to Include: Strength training, Power training, Balance training, Gait and locomotor training, Active ROM Comment: RLE For the Purpose of:: To decrease pain, To increase ROM, To improve muscle performance and motor function, To improve ability to perform ADL's, To increase tolerance to activity/condition/position, To improve performance and independence with ADL's, To improve ability of physical actions for home/community/work/leisure, To improve gait and locomotor functions, To improve health of tissue, To decrease soft tissue restriction, To increase flexibility/ROM, To improve endurance, To improve balance, To improve safety with gait, To assume or resume ADL's, To improve tolerance to ADL's Please do not hesitate to contact me at [phone] by phone or if you have questions or concerns regarding this new plan of care! Sincerely, Jaxon Caro, PT, Cert MDT, OCS
--- NOTE | 2021-11-16 09:48 | HP.PTDCSUM ---
It has been my pleasure to treat JODI CLARK Jr. referred by Dr. Rigo Cramer MD, with the diagnosis of RIGHT HIP HEMIARHROPLASTY ,S/P HIP FRACTURE for a total of 21 visit(s). Discharge Date: Please see the following information for a summary of their discharge status. Subjective: Doing well ..ready for d/c Right Hip Pain Intensity (Out of 10): 0 % Improvement: 95 Objective/Function: POSTURE: mild forward posture. GAIT: reciprocal pattern normal karissa. MMT: quads/hams 4/5,hip flexion 4/5,hip abd 4-/5. STAIRS: alternating steps with rail Goal 1:: Patient to be I with HEP to improve gait and function. Goal Progress: Goal Met Goal 2:: Patient to ambulate with community distances with improve gait pattern to get to store with improve quality of gait pattern Goal Progress: Goal Met Goal 3:: Patient increase strength quads/hams 4/5,hip flexion 4-/5,hip abduction 3+/5 to improve gait Goal Progress: Goal Met Goal 4:: Patient to improve right hip /knee ROM to be I with stairs to get to basement and safely leave home. Goal Progress: Goal Met Goal 5:: Patient to improve LFES score by 10 points to improve QOL and RETURN TO PRIOR LEVEL OF FUNCTION. Goal Progress: Goal Met Goal 6:: DYNAMIC BALANCE GOOD - LEVEL AND UNLEVEL SURFACES Goal Progress: Goal Met Plan: D/C TO HEP If there are questions or concerns regarding this patient's physical therapy, please feel free to call me at [phone]. Thank you for the referral of this patient. Sincerely, Jaxon Caro, PT, Cert MDT, OCS Balance/Gait/Functional tests - Balance/Special Test Scores Lower Extremity Functional Score: 61
== END 2021-08-20 19:00 | disposition home or self-care (01) ==
LOC: PT 14:00
PROVIDERS: PCP Family Medicine Geriatric Medicine; Referring Provider Physician Assistant; Visit Provider Family Medicine Geriatric Medicine
DX: Z47.1 Aftercare following joint replacement surgery (principal); S72.001D Fracture of unspecified part of neck of right femur, subsequent encounter for closed fracture with routine healing; Z96.641 Presence of right artificial hip joint
CPT/HCPCS: 97110; 97162

== ENCOUNTER 2021-10-28 13:20 | Outpatient (CLI) | payer MEDICARE, SELFPAY ==
[2021-10-28 17:11] LABS: Absolute Lymphocyte Count 2.17 X10^3/uL (0.83-4.51); Absolute Neutrophil Count 7.7 X10^3/uL (2.0-7.7); Basophil# 0.06 X10^3/uL; Basophil% 0.5 % (0-1); Eosinophil# 0.29 X10^3/uL; Eosinophils% 2.5 % (0-5); Hemoglobin 15.6 g/dL (13.0-16.5); Lymphocyte # 2.17 X10^3/ul (0.83-4.51); Mean Corp Hgb Conc 33.2 g/dL (32-36); Mean Corpuscular Volume 90.4 fL (80-94); Mean Platelet Vol. 11.7 fl (6.2-12.0); Monocyte# 1.14 X10^3/uL; NRBC Flagged by Analyzer 0 % (0-5); Neutrophil % 67.6 % (47-70); Platelet Count 288 K/mm3 (150-450); RBC Distribution Width SD 46.3 fl (35.1-43.9); White Blood Count 11.4 K/mm3 (4.4-11.0)
[2021-10-28 17:34] LABS: Vitamin D,25 Hydroxy 65.9 ng/mL
[2021-10-28 17:49] LABS: ALB/GLOB Ratio 0.8 RATIO (0.9-2.4); AST(SGOT) 24 U/L (15-37); Alanine Aminotransfer ALT/SGPT 36 U/L (16-61); Albumin, Serum 3.5 g/dL (3.2-5.0); Alkaline Phosphatase 77 U/L (45-117); Anion Gap 7 (5-15); BUN 26 mg/dL (7-18); BUN/Creat Ratio 25.5 RATIO (10-20); Calcium,Total 8.7 mg/dL (8.5-10.1); Chloride 103 mmol/L (98-107); Cholesterol 251 mg/dL (200); Creatinine, Serum 1.02 mg/dL (0.70-1.30); EST Glomerular Filtration Rate 76 mL/min (>60); Est Glom Filt Rate - Afr Amer 92 mL/min (>60); Globulin 4.4 g/dL (2.2-4.2); Glucose 78 mg/dL (74-106); High Density Lipoprotein 35 mg/dL; Potassium 4.5 mmol/L (3.5-5.1); Protein, Total 7.9 g/dL (6.4-8.2); Sodium Level 135 mmol/L (136-145); Thyroid Stim Hormone (TSH) 1.94 uIU/mL (0.358-3.74); Triglycerides 401 mg/dL
== END 2021-10-28 23:59 | disposition home or self-care (01) ==
LOC: POLAB3 13:28
PROVIDERS: PCP Family Medicine Geriatric Medicine; Visit Provider Family Medicine Geriatric Medicine
DX: E55.9 Vitamin D deficiency, unspecified (principal); E78.5 Hyperlipidemia, unspecified; R53.83 Other fatigue
CPT/HCPCS: 36415; 80053; 80061; 82306; 84443; 85025

== ENCOUNTER 2022-06-21 16:42 | Emergency (ER) | payer OTHER, MEDICARE, SELFPAY ==
[2022-06-21 16:48] VITALS: BP 184/108; PULSE 75; RESP 29; TEMP 36.7; O2SAT 98; BMI 23.3
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
[2022-06-21 17:00] VITALS: BP 154/91; PULSE 76; RESP 26; TEMP 36.7; O2SAT 93
[2022-06-21 18:08] VITALS: TEMP 36.7; O2SAT 93
[2022-06-21 18:13] VITALS: BP 181/128; PULSE 78; RESP 25; O2SAT 94
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
[2022-06-21] MEDS: Diphth,Pertuss(Acell),Tet Vac 0.5 ML Vial IM (18:42)
[2022-06-21 19:58] VITALS: RESP 18; O2SAT 94
[2022-06-21] MEDS: Lidocaine 1% (20 ml mdv) 20 ML Vial INFILT (20:34)
[2022-06-21 20:49] VITALS: BP 130/72; PULSE 76; PULSE 77; RESP 16; O2SAT 93; O2SAT 94
== END 2022-06-21 20:56 | disposition home or self-care (01) ==
PROVIDERS: Emergency Provider Emergency Medicine; PCP Family Medicine Geriatric Medicine; Visit Provider Emergency Medicine
DX: S01.81XA Laceration without foreign body of other part of head, initial encounter (principal); S20.20XA Contusion of thorax, unspecified, initial encounter; S80.12XA Contusion of left lower leg, initial encounter; S51.802A Unspecified open wound of left forearm, initial encounter; I10 Essential (primary) hypertension; E78.2 Mixed hyperlipidemia; V44.5XXA Car driver injured in collision with heavy transport vehicle or bus in traffic accident, initial encounter; Z87.891 Personal history of nicotine dependence; Z79.899 Other long term (current) drug therapy; Z23 Encounter for immunization
CPT/HCPCS: 12011; 71046; 90471; 90715; 99285

== ENCOUNTER → 2022-09-15 | Outpatient (CLI) | payer MEDICARE, SELFPAY | END | disposition home or self-care (01) | LOC: PSN 10:13 | PROVIDERS: PCP Family Medicine Geriatric Medicine; Referring Provider Family Medicine Geriatric Medicine; Visit Provider Family Medicine Geriatric Medicine | DX: R68.83 Chills (without fever) (principal) | CPT/HCPCS: 87635; 87804; 87807; C9803; U0003; U0005 ==

== ENCOUNTER → 2022-11-01 | Outpatient (CLI) | payer MEDICARE, SELFPAY ==
[2022-11-01 17:55] LABS: Absolute Lymphocyte Count 1.67 X10^3/uL (0.83-4.51); Absolute Neutrophil Count 3.6 X10^3/uL (2.0-7.7); Basophil# 0.07 X10^3/uL; Basophil% 1.1 % (0-1); Eosinophil# 0.29 X10^3/uL; Eosinophils% 4.5 % (0-5); Hematocrit 48.1 % (40-54); Hemoglobin 15.7 g/dL (13.0-16.5); Lymphocyte # 1.67 X10^3/ul (0.83-4.51); Lymphocyte % 25.7 % (19-41); Mean Corp Hgb Conc 32.6 g/dL (32-36); Mean Corpuscular Hgb 29.5 pg (27.0-32.0); Mean Corpuscular Volume 90.2 fL (80-94); Mean Platelet Vol. 11.3 fl (6.2-12.0); Monocyte# 0.85 X10^3/uL; Monocyte% 13.1 % (0-10); NRBC Flagged by Analyzer 0 % (0-5); Neutrophil # 3.58 X10^3/uL (2.7-7.7); Neutrophil % 55.1 % (47-70); Platelet Count 293 K/mm3 (150-450); RBC Distribution Width CV 14.3 % (11.6-14.6); Red Blood Count 5.33 M/mm3 (4.6-6.2); White Blood Count 6.5 K/mm3 (4.4-11.0)
[2022-11-01 18:08] LABS: Vitamin D,25 Hydroxy 46.6 ng/mL
[2022-11-01 18:13] LABS: ALB/GLOB Ratio 0.7 RATIO (0.9-2.4); AST(SGOT) 29 U/L (15-37); Alanine Aminotransfer ALT/SGPT 30 U/L (16-61); Albumin, Serum 3.3 g/dL (3.2-5.0); Alkaline Phosphatase 80 U/L (45-117); Anion Gap 9 (5-15); BUN 23 mg/dL (7-18); BUN/Creat Ratio 20.2 RATIO (10-20); Calcium,Total 9.1 mg/dL (8.5-10.1); Chloride 101 mmol/L (98-107); Creatinine, Serum 1.14 mg/dL (0.70-1.30); EST Glomerular Filtration Rate 66 mL/min (>60); Est Glom Filt Rate - Afr Amer 80 mL/min (>60); Globulin 4.5 g/dL (2.2-4.2); Glucose 82 mg/dL (74-106); Potassium 4.4 mmol/L (3.5-5.1); Protein, Total 7.8 g/dL (6.4-8.2); Sodium Level 135 mmol/L (136-145); Thyroid Stim Hormone (TSH) 1.84 uIU/mL (0.358-3.74)
== END | disposition home or self-care (01) ==
LOC: POLAB3 13:03
PROVIDERS: PCP Family Medicine Geriatric Medicine; Visit Provider Family Medicine Geriatric Medicine
DX: I10 Essential (primary) hypertension (principal); E55.9 Vitamin D deficiency, unspecified
CPT/HCPCS: 36415; 80053; 82306; 84443; 85025

== ENCOUNTER → 2023-04-26 | Outpatient (CLI) | payer MEDICARE, SELFPAY ==
[2023-04-26 14:29] LABS: Absolute Lymphocyte Count 1.73 X10^3/uL (0.83-4.51); Absolute Neutrophil Count 4.8 X10^3/uL (2.0-7.7); Basophil# 0.07 X10^3/uL; Basophil% 0.9 % (0-1); Eosinophil# 0.24 X10^3/uL; Eosinophils% 3.1 % (0-5); Hematocrit 47.5 % (40-54); Hemoglobin 15.4 g/dL (13.0-16.5); Lymphocyte # 1.73 X10^3/ul (0.83-4.51); Lymphocyte % 22.5 % (19-41); Mean Corp Hgb Conc 32.4 g/dL (32-36); Mean Corpuscular Hgb 28.9 pg (27.0-32.0); Mean Corpuscular Volume 89.3 fL (80-94); Mean Platelet Vol. 10.7 fl (6.2-12.0); Monocyte# 0.78 X10^3/uL; Monocyte% 10.1 % (0-10); NRBC Flagged by Analyzer 0 % (0-5); Neutrophil # 4.82 X10^3/uL (2.7-7.7); Neutrophil % 62.7 % (47-70); Platelet Count 312 K/mm3 (150-450); RBC Distribution Width CV 13.8 % (11.6-14.6); RBC Distribution Width SD 45.1 fl (35.1-43.9); Red Blood Count 5.32 M/mm3 (4.6-6.2); White Blood Count 7.7 K/mm3 (4.4-11.0)
[2023-04-26 15:00] LABS: Vitamin D,25 Hydroxy 53.1 ng/mL
[2023-04-26 15:08] LABS: ALB/GLOB Ratio 0.8 RATIO (0.9-2.4); AST(SGOT) 23 U/L (15-37); Alanine Aminotransfer ALT/SGPT 31 U/L (16-61); Albumin, Serum 3.4 g/dL (3.2-5.0); Alkaline Phosphatase 90 U/L (45-117); Anion Gap 10 (5-15); BUN 23 mg/dL (7-18); BUN/Creat Ratio 24.2 RATIO (10-20); Calcium,Total 8.8 mg/dL (8.5-10.1); Chloride 102 mmol/L (98-107); Cholesterol 215 mg/dL (200); Creatinine, Serum 0.95 mg/dL (0.70-1.30); EST Glomerular Filtration Rate 82 mL/min (>60); Est Glom Filt Rate - Afr Amer 99 mL/min (>60); Globulin 4.4 g/dL (2.2-4.2); Glucose 104 mg/dL (74-106); High Density Lipoprotein 32 mg/dL; Potassium 4.4 mmol/L (3.5-5.1); Protein, Total 7.8 g/dL (6.4-8.2); Sodium Level 133 mmol/L (136-145); Thyroid Stim Hormone (TSH) 1.81 uIU/mL (0.358-3.74); Triglycerides 454 mg/dL
== END | disposition home or self-care (01) ==
LOC: LAB 14:15
PROVIDERS: PCP Family Medicine Geriatric Medicine; Referring Provider Family Medicine Geriatric Medicine; Visit Provider Family Medicine Geriatric Medicine
DX: I10 Essential (primary) hypertension (principal); E55.9 Vitamin D deficiency, unspecified
CPT/HCPCS: 36415; 80053; 80061; 82306; 84443; 85025

== ENCOUNTER → 2023-11-07 | Outpatient (CLI) | payer MEDICARE, SELFPAY ==
[2023-11-07 14:17] LABS: Absolute Lymphocyte Count 1.54 X10^3/uL (0.83-4.51); Absolute Neutrophil Count 5.1 X10^3/uL (2.0-7.7); Basophil# 0.06 X10^3/uL; Basophil% 0.7 % (0-1); Eosinophil# 0.38 X10^3/uL; Eosinophils% 4.7 % (0-5); Hematocrit 46.6 % (40-54); Hemoglobin 14.7 g/dL (13.0-16.5); Lymphocyte # 1.54 X10^3/ul (0.83-4.51); Lymphocyte % 19.1 % (19-41); Mean Corp Hgb Conc 31.5 g/dL (32-36); Mean Corpuscular Volume 91.9 fL (80-94); Mean Platelet Vol. 11.3 fl (6.2-12.0); Monocyte# 0.91 X10^3/uL; Monocyte% 11.3 % (0-10); NRBC Flagged by Analyzer 0 % (0-5); Neutrophil # 5.12 X10^3/uL (2.7-7.7); Neutrophil % 63.6 % (47-70); Platelet Count 309 K/mm3 (150-450); RBC Distribution Width CV 14.3 % (11.6-14.6); RBC Distribution Width SD 48.2 fl (35.1-43.9); Red Blood Count 5.07 M/mm3 (4.6-6.2); White Blood Count 8.1 K/mm3 (4.4-11.0)
[2023-11-07 14:33] LABS: Vitamin D,25 Hydroxy 52.6 ng/mL
[2023-11-07 15:42] LABS: ALB/GLOB Ratio 0.8 RATIO (0.9-2.4); AST(SGOT) 18 U/L (15-37); Alanine Aminotransfer ALT/SGPT 27 U/L (16-61); Albumin, Serum 3.3 g/dL (3.2-5.0); Alkaline Phosphatase 80 U/L (45-117); Anion Gap 7 (5-15); BUN 25 mg/dL (7-18); BUN/Creat Ratio 23.1 RATIO (10-20); Calcium,Total 8.6 mg/dL (8.5-10.1); Chloride 103 mmol/L (98-107); Cholesterol 211 mg/dL (200); Creatinine, Serum 1.08 mg/dL (0.70-1.30); EST Glomerular Filtration Rate 71 mL/min (>60); Est Glom Filt Rate - Afr Amer 85 mL/min (>60); Globulin 4.4 g/dL (2.2-4.2); Glucose 97 mg/dL (74-106); High Density Lipoprotein 33 mg/dL; Potassium 4.5 mmol/L (3.5-5.1); Protein, Total 7.7 g/dL (6.4-8.2); Sodium Level 135 mmol/L (136-145); Thyroid Stim Hormone (TSH) 2.08 uIU/mL (0.358-3.74); Triglycerides 383 mg/dL; Very Low Density Lipoprotein 77 mg/dL (5-40)
== END | disposition home or self-care (01) ==
LOC: POLAB3 13:03
PROVIDERS: PCP Family Medicine Geriatric Medicine; Visit Provider Family Medicine Geriatric Medicine
DX: I10 Essential (primary) hypertension (principal); E78.5 Hyperlipidemia, unspecified; E55.9 Vitamin D deficiency, unspecified
CPT/HCPCS: 36415; 80053; 80061; 82306; 84443; 85025

== ENCOUNTER → 2024-05-06 | Outpatient (CLI) | payer MEDICARE, SELFPAY ==
[2024-05-06 15:08] LABS: Absolute Lymphocyte Count 1.53 X10^3/uL (0.83-4.51); Absolute Neutrophil Count 4.4 X10^3/uL (2.0-7.7); Basophil# 0.05 X10^3/uL; Basophil% 0.7 % (0-1); Eosinophil# 0.19 X10^3/uL; Eosinophils% 2.7 % (0-5); Hematocrit 46.2 % (40-54); Hemoglobin 15.3 g/dL (13.0-16.5); Lymphocyte # 1.53 X10^3/ul (0.83-4.51); Lymphocyte % 21.8 % (19-41); Mean Corp Hgb Conc 33.1 g/dL (32-36); Mean Corpuscular Hgb 29.9 pg (27.0-32.0); Mean Corpuscular Volume 90.4 fL (80-94); Mean Platelet Vol. 11.3 fl (6.2-12.0); Monocyte# 0.79 X10^3/uL; Monocyte% 11.2 % (0-10); NRBC Flagged by Analyzer 0 % (0-5); Neutrophil # 4.44 X10^3/uL (2.7-7.7); Neutrophil % 63.2 % (47-70); Platelet Count 265 K/mm3 (150-450); RBC Distribution Width SD 46.5 fl (35.1-43.9); Red Blood Count 5.11 M/mm3 (4.6-6.2)
[2024-05-06 15:53] LABS: Vitamin D,25 Hydroxy 49.8 ng/mL
[2024-05-06 16:01] LABS: ALB/GLOB Ratio 0.8 RATIO (0.9-2.4); AST(SGOT) 23 U/L (15-37); Alanine Aminotransfer ALT/SGPT 28 U/L (16-61); Albumin, Serum 3.3 g/dL (3.2-5.0); Alkaline Phosphatase 75 U/L (45-117); Anion Gap 7 (5-15); BUN 22 mg/dL (7-18); BUN/Creat Ratio 21.2 RATIO (10-20); Calcium,Total 8.6 mg/dL (8.5-10.1); Chloride 107 mmol/L (98-107); Cholesterol 215 mg/dL (200); Creatinine, Serum 1.04 mg/dL (0.70-1.30); EST Glomerular Filtration Rate 74 mL/min (>60); Est Glom Filt Rate - Afr Amer 89 mL/min (>60); Globulin 4.3 g/dL (2.2-4.2); Glucose 95 mg/dL (74-106); High Density Lipoprotein 36 mg/dL; Potassium 4.3 mmol/L (3.5-5.1); Protein, Total 7.6 g/dL (6.4-8.2); Sodium Level 134 mmol/L (136-145); Triglycerides 314 mg/dL; Very Low Density Lipoprotein 63 mg/dL (5-40)
== END | disposition home or self-care (01) ==
PROVIDERS: PCP Family Medicine Geriatric Medicine; Referring Provider Family Medicine Geriatric Medicine; Visit Provider Family Medicine Geriatric Medicine
DX: I10 Essential (primary) hypertension (principal); E78.5 Hyperlipidemia, unspecified; E55.9 Vitamin D deficiency, unspecified
CPT/HCPCS: 36415; 80053; 80061; 82306; 84443; 85025

== ENCOUNTER → 2024-12-19 | Outpatient (CLI) | payer MEDICARE, SELFPAY ==
[2024-12-19 11:00] LABS: Bacteria 0 SEEN /hpf (None Seen); Mucous, Urine 0 SEEN /hpf (<or=2+); Red Blood Cells-Urine 0 SEEN /hpf (0-5); Squamous Epithelial Cells - UA 0 SEEN /hpf (0-5); White Blood Cells 0 SEEN /hpf (0-5)
[2024-12-19 12:23] LABS: Absolute Lymphocyte Count 1.44 X10^3/uL (0.83-4.51); Absolute Neutrophil Count 4.3 X10^3/uL (2.0-7.7); Basophil# 0.05 X10^3/uL; Basophil% 0.7 % (0-1); Eosinophil# 0.17 X10^3/uL; Eosinophils% 2.5 % (0-5); Hematocrit 43.2 % (40-54); Hemoglobin 14.3 g/dL (13.0-16.5); Lymphocyte # 1.44 X10^3/ul (0.83-4.51); Lymphocyte % 21.2 % (19-41); Mean Corp Hgb Conc 33.1 g/dL (32-36); Mean Corpuscular Volume 90.6 fL (80-94); Mean Platelet Vol. 11.3 fl (6.2-12.0); Monocyte% 11.8 % (0-10); NRBC Flagged by Analyzer 0 % (0-5); Neutrophil # 4.29 X10^3/uL (2.7-7.7); Neutrophil % 63.2 % (47-70); Platelet Count 295 K/mm3 (150-450); RBC Distribution Width CV 14.6 % (11.6-14.6); RBC Distribution Width SD 48.8 fl (35.1-43.9); Red Blood Count 4.77 M/mm3 (4.6-6.2); White Blood Count 6.8 K/mm3 (4.4-11.0)
[2024-12-19 12:44] LABS: Color, Urine Yellow (Yellow); Glucose, Dipstick Normal (Normal); Ketone-Dipstick Negative (Negative); Leukocyte Esterase-Dipstick Negative /ul (Negative); Nitrite-Dipstick Negative (Negative); Occult Blood-Urine Negative /ul (Negative); Protein-Dipstick 30 mg/dl (Negative); Urine Bilirubin Dipstick Negative (Negative); Urine Clarity Clear (Clear); Urine Urobilinogen Normal (Normal)
[2024-12-19 13:43] LABS: ALB/GLOB Ratio 1.2 RATIO (0.9-2.4); AST(SGOT) 23 U/L (<=37); Alanine Aminotransfer ALT/SGPT 18 U/L (<=46); Alkaline Phosphatase 80 U/L (40-129); Anion Gap 12 (5-15); BUN 24 mg/dL (4-19); BUN/Creat Ratio 24.7 RATIO (10-20); Calcium,Total 9.3 mg/dL (7.6-11.0); Carbon Dioxide 20.8 mmol/L (21.0-32.0); Chloride 101 mmol/L (98-108); Cholesterol 220 mg/dL (<=200); Creatinine, Serum 0.96 mg/dL (0.70-1.20); EST Glomerular Filtration Rate 81 (>60); Globulin 3.3 g/dL (2.2-4.2); Glucose 93 mg/dL (70-99); High Density Lipoprotein 37 mg/dL; Low Density Lipoprotein Calc. 139 mg/dL; Potassium 4.7 mmol/L (3.3-5.1); Protein, Total 7.3 g/dL (5.9-8.4); Sodium Level 133 mmol/L (133-145); Total Bilirubin 0.36 mg/dL (0.00-1.30); Triglycerides 216 mg/dL; Very Low Density Lipoprotein 43 mg/dL (5-40); cholesterol:hdl ratio screen 5.88
== END | disposition home or self-care (01) ==
LOC: MFPLAB 10:58
PROVIDERS: PCP Family Medicine; Referring Provider Family Medicine; Visit Provider Family Medicine
DX: E78.00 Pure hypercholesterolemia, unspecified (principal); I10 Essential (primary) hypertension
CPT/HCPCS: 36415; 80053; 80061; 81001; 85025

== ENCOUNTER → 2025-04-10 | Outpatient (CLI) | payer MEDICARE, SELFPAY ==
--- NOTE | 2025-04-10 16:11 | RAD_ITS ---
EXAM: XR Lumbosacral Spine, 2 or 3 Views CLINICAL INDICATION: LUMBAR RADICULOPATHY TECHNIQUE: Frontal and lateral views of the lumbar spine and sacrum. COMPARISON: No relevant prior studies available. FINDINGS: VERTEBRAE: Degenerative facet arthropathy throughout the lumbar spine, most prominent in the lower lumbar spine. Normal alignment. No acute fracture. SACRUM/COCCYX: Unremarkable as visualized. No acute fracture. DISC SPACES: Degenerative disc disease throughout the lumbar spine. SOFT TISSUES: Unremarkable. RAD/Lumbar Spine 2 or 3 Views IMPRESSION: 1. No acute fracture. 2. Degenerative changes lumbar spine as described. Reading Location: [id number]
== END | disposition home or self-care (01) ==
LOC: MTRAD 16:10
PROVIDERS: PCP Family Medicine; Referring Provider Family Medicine; Visit Provider Family Medicine
DX: M54.16 Radiculopathy, lumbar region (principal)
CPT/HCPCS: 72100

== ENCOUNTER → 2025-05-06 | Outpatient (CLI) | payer MEDICARE, SELFPAY ==
--- NOTE | 2025-05-06 10:42 | RAD_ITS ---
PROCEDURE: HIP, UNI W/ PELVIS 2-3 VIEWS 05/06/2025 REASON FOR EXAM: HIP PAIN TECHNIQUE: HIP, UNI W/ PELVIS 2-3 VIEWS Laterality: COMPARISON: 07/05/2021. FINDINGS: Status post bilateral hip arthroplasties. No evidence of acute complication. RAD/HIP, UNI W/ Pelvis 2-3 Views IMPRESSION: Intact bilateral hip arthroplasties. Reading Location: [id number]
== END | disposition home or self-care (01) ==
LOC: MTRAD 10:41
PROVIDERS: PCP Family Medicine; Referring Provider Family Medicine; Visit Provider Family Medicine
DX: M25.552 Pain in left hip (principal)
CPT/HCPCS: 73502

== ENCOUNTER → 2025-05-16 | Outpatient (CLI) | payer MEDICARE, SELFPAY ==
--- NOTE | 2025-05-16 09:44 | MRI_ITS ---
PROCEDURE: SPINE LUMBAR (ROUTINE) 05/16/2025 REASON FOR EXAM: LUMBAR RAD,WEAKNESS OF LOWER LEFT EXTREMITY TECHNIQUE: Procedure Code: MRISPL Modality: MR Procedure: SPINE LUMBAR (ROUTINE) FINDINGS: Normal lumbar vertebral body alignment. Chronic compression deformity with moderate loss of height of L1. Normal conus. No abdominal aortic aneurysm. No paravertebral mass lesion. T12-L1 exhibits no central or foraminal stenosis. At L1-2, there is mild canal narrowing from dorsal cortical bowing and mild annular bulging. At L2-3 disc space narrowing with dorsal disc osteophyte complex and facet arthrosis producing [id number] spinal stenosis centrally. At L3-4 disc space narrowing with minimal concentric annular bulge resulting in mild canal narrowing without nerve root impingement. At L4-5, degenerative disc space narrowing and concentric bulge with mild canal narrowing and facet arthrosis. No foraminal nerve root impingement At L5-S1, disc space narrowing. No central stenosis. Inferior foraminal narrowing is present more prominent on the left than the right MRI/Spine Lumbar (Routine) IMPRESSION: [id number] canal narrowing at L2-3 with mild canal narrowing at L3-4 and L4-5. Negative for significant foraminal encroachment Chronic deformity of L1 Reading Location: [id number]
== END | disposition home or self-care (01) ==
PROVIDERS: PCP Family Medicine; Referring Provider Family Medicine; Visit Provider Family Medicine
DX: M54.16 Radiculopathy, lumbar region (principal); R29.898 Other symptoms and signs involving the musculoskeletal system
CPT/HCPCS: 72148

== ENCOUNTER → 2025-07-16 | Outpatient (CLI) | payer MEDICARE, SELFPAY ==
[2025-07-16 11:55] LABS: Mucous, Urine 0 SEEN /hpf (<or=2+); Red Blood Cells-Urine 0 SEEN /hpf (0-5)
[2025-07-16 14:09] LABS: Color, Urine Yellow (Yellow); Glucose, Dipstick Normal (Normal); Ketone-Dipstick Negative (Negative); Leukocyte Esterase-Dipstick Negative /ul (Negative); Nitrite-Dipstick Negative (Negative); Occult Blood-Urine Negative /ul (Negative); Protein-Dipstick 500 mg/dl (Negative); Specific Gravity, Urine 1.015 (1.002-1.030); Urine Bilirubin Dipstick Negative (Negative)
[2025-07-16 14:17] LABS: Hematocrit 45.2 % (40-54); Hemoglobin 15.2 g/dL (13.0-16.5); Immature Granulocytes Count 0.040 X10^3/uL (0.0-0.0); Mean Corp Hgb Conc 33.6 g/dL (32-36); Mean Corpuscular Volume 89.7 fL (80-94); Mean Platelet Vol. 11.8 fl (6.2-12.0); NRBC Flagged by Analyzer 0 % (0-5); Platelet Count 258 K/mm3 (150-450); RBC Distribution Width CV 14.0 % (11.6-14.6); RBC Distribution Width SD 46.4 fl (35.1-43.9); Red Blood Count 5.04 M/mm3 (4.6-6.2); White Blood Count 7.2 K/mm3 (4.4-11.0)
[2025-07-16 14:20] LABS: Squamous Epithelial Cells - UA 0-5 SEEN /hpf (0-5)
[2025-07-16 15:32] LABS: AST(SGOT) 27 U/L (<=37); Alanine Aminotransfer ALT/SGPT 26 U/L (<=46); Albumin, Serum 3.9 g/dL (3.4-4.8); Alkaline Phosphatase 66 U/L (40-129); Anion Gap 12 (5-15); BUN 22 mg/dL (4-19); BUN/Creat Ratio 22.5 RATIO (10-20); Calcium,Total 9.4 mg/dL (7.6-11.0); Carbon Dioxide 22.0 mmol/L (21.0-32.0); Chloride 102 mmol/L (98-108); Cholesterol 234 mg/dL (<=200); Globulin 3.3 g/dL (2.2-4.2); Glucose 146 mg/dL (70-99); Low Density Lipoprotein Calc. 134 mg/dL; Magnesium 2.1 mg/dL (1.5-2.2); Potassium 4.1 mmol/L (3.3-5.1); Triglycerides 350 mg/dL; Very Low Density Lipoprotein 70 mg/dL (5-40); Vitamin B12 1296 pg/mL (180-914); Vitamin D,25 Hydroxy 59.6 ng/mL (30-100); cholesterol:hdl ratio screen 6.38
== END | disposition home or self-care (01) ==
LOC: MFPLAB 11:52
PROVIDERS: PCP Family Medicine; Visit Provider Family Medicine
DX: R73.09 Other abnormal glucose (principal); E78.00 Pure hypercholesterolemia, unspecified; R53.83 Other fatigue; I10 Essential (primary) hypertension
CPT/HCPCS: 36415; 80053; 80061; 81001; 82306; 82607; 83036; 83735; 84443; 85025